=== PATIENT | female | born 1945 | race Caucasian/White ===

== ENCOUNTER 2018-12-28 13:27 | Outpatient (CLI) | payer SELFPAY | END 2018-12-28 13:28 | disposition EMS.NT | LOC: EMS 13:27 | PROVIDERS: ATTEND Surgery | DX: R07.9 Chest pain, unspecified (principal) ==

== ENCOUNTER 2020-03-07 14:18 | Outpatient (CLI) | payer MEDICARE, BC ==
--- NOTE | 2020-03-15 10:54 | Mammography Report ---
BILATERAL DIGITAL SCREENING MAMMOGRAM 3D/2D: 03/07/2020 CLINICAL: Baseline exam. Routine screening. No prior exams were available for comparison. There are scattered fibroglandular elements in both br easts. There are benign calcifications in the right breast. No significant masses, calcifications, or other findings are seen in either breast. IMPRESSION: There is no mammographic evidence of malignancy. A 1 year screening mammogram is recommended. This exam was interpreted at Station ID: [id number]. NOTE: For mammograms, a report in lay terms will be sent to the patient. Approximately 15% of breast malignancies will not be visualized mammographically. In the management of a palpable breast mass, a negative mammogram must not discourage biopsy of a clinically suspicious lesion. Electronically Signed By: Tapan Rangel M.D. [facility] [place]:03/15/2020 08:59:37 ACR BI-RADS Category 2: Benign Finding(s) 3342F PARENCHYMAL PATTERN: (A) - The breast(s) demonstrate(s) scattered fibroglandular densities. BI-RADS CATEGORY: (2) - 2 RECOMMENDATION: (ANNUAL) - Recommend routine annual screening mammography. [id number] 1 year screening LATERALITY: (B)
== END 2020-03-07 14:19 | disposition home or self-care (01) ==
LOC: DI 14:18
PROVIDERS: ATTEND Internal Medicine
DX: Z12.31 Encounter for screening mammogram for malignant neoplasm of breast (principal)
CPT/HCPCS: 77063; 77067

== ENCOUNTER 2021-06-18 10:57 | Outpatient (CLI) | payer MEDICARE, BC ==
--- NOTE | 2021-06-19 08:51 | Mammography Report ---
BILATERAL DIGITAL SCREENING MAMMOGRAM 3D/2D: 06/18/2021 CLINICAL: Routine screening. Comparison is made to exams dated: 03/07/2020 mammogram - [facility], 12/16/2017 [facility] mogram, and 10/08/2016 mammogram - [facility]. There are scattered fibroglandular eleme nts in both breasts. There are benign calcifications in the right breast. No significant masses, calcifications, or other findings are seen in either breast. There has been no significant interval change. IMPRESSION: BENIGN There is no mammographic evidence of malignancy. A 1 year screening mammogram is recommended. This exam was interpreted at Station ID: [id number]. NOTE: For mammograms, a report in lay terms will be sent to the patient. Approximately 15% of breast malignancies will not be visualized mammographically. In the management of a palpable breast mass, a negative mammogram must not discourage biopsy of a clinically suspicious lesion. Electronically Signed By: Landon Stokes M.D. ddp/smitharad:06/18/2021 12:08:56 ACR BI-RADS Category 2: Benign Finding(s) 3342F PARENCHYMAL PATTERN: (A) - The breast(s) demonstrate(s) scattered fibroglandular densities. BI-RADS CATEGORY: (2) - 2 RECOMMENDATION: (ANNUAL) - Recommend routine annual screening mammography. [id number] 1 year screening LATERALITY: (B)
== END 2021-06-18 10:58 | disposition home or self-care (01) ==
LOC: DI.S 10:57
DX: Z12.31 Encounter for screening mammogram for malignant neoplasm of breast (principal)

== ENCOUNTER 2021-12-22 09:31 | Outpatient (CLI) | payer MEDICARE, BC ==
[2021-12-22 15:19] LABS: BASOPHILS % (AUTO) 0.6 %; EOSINOPHILS # (AUTO) 0.1 10^3/uL (0.0-0.7); HCT - HEMATOCRIT 39.6 % (37.0-47.0); HGB - HEMOGLOBIN 12.9 g/dL (12.0-16.0); LYMPHOCYTES # (AUTO) 1.6 10^3/uL (1.5-3.5); LYMPHOCYTES % (AUTO) 45.6 %; MEAN CORPUSCULAR HEMOGLOBIN 29.8 pg (27.0-31.0); MEAN CORPUSCULAR HGB CONC 32.6 g/dL (32.0-36.0); MEAN CORPUSCULAR VOLUME 91.5 fL (81.0-99.0); MEAN PLATELET VOLUME 12.2 fL (7.9-10.8); MONOCYTES # (AUTO) 0.6 10^3/uL (0.0-1.0); MONOCYTES % (AUTO) 18.1 %; NEUTROPHILS # (AUTO) 1.2 10^3/uL (1.5-6.6); NEUTROPHILS % (AUTO) 33.1 %; PLT - PLATELET COUNT 106 10^3/uL (130-450); RED BLOOD COUNT 4.33 10^6/uL (4.20-5.40); RED CELL DISTRIBUTION WIDTH 13.9 % (12.0-15.0); WHITE BLOOD COUNT 3.5 x10^3/uL (4.8-10.8)
[2021-12-22 15:57] LABS: ALBUMIN/GLOBULIN RATIO 1.2 (1.0-2.2); ALKALINE PHOSPHATASE 63 IU/L (42-121); ALT ALANINE AMINOTRANSFERASE 17 IU/L (10-60); AST ASPARTATE AMINOTRANSFERASE 19 IU/L (10-42); BILIRUBIN,TOTAL 0.5 mg/dL (0.2-1.0); BUN - BLOOD UREA NITROGEN 14 mg/dL (6-20); CALCIUM 9.5 mg/dL (8.5-10.3); CARBON DIOXIDE - CO2 25 mmol/L (21-32); CHLORIDE 106 mmol/L (101-111); CHOL/HDL RATIO 4.5 (<4.4); CHOLESTEROL 226 mg/dL; CREATININE 0.6 mg/dL (0.4-1.0); GFR - MDRD 97 (>89); GLUCOSE 91 mg/dL (70-100); HDL CHOLESTEROL 50 mg/dL; LDL CHOLESTEROL,CALCULATED 141 mg/dL; LDL/HDL RATIO 2.8 (<4.4); POTASSIUM 4.1 mmol/L (3.5-5.0); SODIUM 138 mmol/L (135-145); TOTAL PROTEIN 7.3 g/dL (6.7-8.2); TRIGLYCERIDES 175 mg/dL; VLDL CHOLESTEROL 35 mg/dL
== END 2021-12-22 09:32 | disposition home or self-care (01) ==
LOC: LAB.S 09:31
PROVIDERS: ATTEND Family Medicine
DX: Z00.00 Encounter for general adult medical examination without abnormal findings (principal); D69.6 Thrombocytopenia, unspecified
CPT/HCPCS: 36415; 80053; 80061; 83721; 85025

== ENCOUNTER 2022-04-12 14:18 | Outpatient (CLI) | payer MEDICARE, BC ==
--- NOTE | 2022-04-12 17:02 | DEXA Report ---
PROCEDURE: Dexa Spine and/or Hip INDICATIONS: POST MENOPAUSAL TECHNIQUE: Dual energy x-ray absorptiometry (DXA) was performed on a Lopoly System. Regions measur ed are the AP Spine, femoral neck, and if needed forearm. COMPARISON: 03/07/2020 FINDINGS: Lumbar Spine: Bone Mineral Density 1.185 g/cm/cm,T score 0, normal bone density Left Hip: Bone Mineral Density 0.852 g/cm/cm,T score -1.2, osteopenia Left Femoral Neck: Bone Mineral Density 0.773 g/cm/cm, T score -1.9, osteopenia (T score greater or equal to -1.0: NORMAL) (T score from -1.1 to -2.4: OSTEOPENIA) (T score less than or equal to -2.5 to: OSTEOPOROSIS) Impression: Osteopenia. Patient is at increased risk for fracture. Of note, left hip bone mineral density decreas ed 6.8% compared to 2020 evaluation. Additionally, bone mineral density of the lumbar spine decreased 2.5% compared to 2020 evaluation. Patients with diagnosis of osteoporosis or osteopenia should have regular bone mineral density assess ment. For those eligible for Medicare, routine testing is allowed once every 2 years. Testing frequ ency can be increased for patients who have rapidly progressing disease or for those who are receivin g medical therapy to restore bone mass. Reviewed by: Naun Chi MD on 04/12/2022 5:00 PM PDT Approved by: Naun Chi MD on 04/12/2022 5:00 PM PDT Station ID: [id number]
== END 2022-04-12 14:19 | disposition home or self-care (01) ==
LOC: DI 14:18
PROVIDERS: ATTEND Family Medicine
DX: Z13.820 Encounter for screening for osteoporosis (principal); M85.89 Other specified disorders of bone density and structure, multiple sites

== ENCOUNTER 2024-03-31 14:54 | Outpatient (CLI) | payer MEDICARE, BC ==
--- NOTE | 2024-04-01 10:43 | Mammography Report ---
BILATERAL DIGITAL SCREENING MAMMOGRAM 3D/2D: 03/31/2024 CLINICAL: Routine screening. Comparison is made to exams dated: 06/18/2021 mammogram, 03/07/2020 mammogram - [facility], and 12/16/2017 mammogram - [facility]. There are scattered areas of fibroglandular density in both breasts (category b / 25%-50% glandular t issue). There are benign calcifications in the right breast. No significant masses, calcifications, or other findings are seen in either breast. There has been no significant interval change. IMPRESSION: BENIGN There is no mammographic evidence of malignancy. A 1 year screening mammogram is recommended. Based on the Tyrer Cuzick model (a risk assessment model) the patient's lifetime risk is 1.1% and her 10 year risk is 0.0%. According to the ACR, ACS, and NCCN guidelines, an annual breast MRI exam chino g with mammogram is recommended if the patient's lifetime risk is 20% or greater. This exam was interpreted at Station ID: [id number]. NOTE: For mammograms, a report in lay terms will be sent to the patient. Approximately 15% of breast malignancies will not be visualized mammographically. In the management of a palpable breast mass, a negative mammogram must not discourage biopsy of a clinically suspicious lesion. Electronically Signed By: Naun smyth/mimi:04/01/2024 07:28:05 letter sent: No_Letter ACR BI-RADS Category 2: Benign Finding(s) 3342F PARENCHYMAL PATTERN: (A) - The breast(s) demonstrate(s) scattered fibroglandular densities. BI-RADS CATEGORY: (2) - 2 RECOMMENDATION: (ANNUAL) - Recommend routine annual screening mammography. [id number] 1 year screening LATERALITY: (B)
== END 2024-03-31 14:55 | disposition home or self-care (01) ==
LOC: DI.S 14:54
DX: Z12.31 Encounter for screening mammogram for malignant neoplasm of breast (principal); R92.323 Mammographic fibroglandular density, bilateral breasts

== ENCOUNTER 2025-02-27 15:16 | Inpatient (IN) ==
--- NOTE | 2025-02-27 15:28 | ED Physician Documentation ---
PD HPI LOWER EXT INJURY Stated complaint Stated Complaint: RT HIP PX, GLF Chief complaint Chief Complaint: Ext Problem History obtained from History obtained from: Patient, Family and EMS History of Present Illness PD HPI LOW EXT INJURY LOCATION: Right and Hip Type of injury: Fall (She states she was walking in the kitchen and pivoted and her flip-flop twisted on her foot causing her to fall to the right. She struck her elbow and hip. Main pain at the right hip and unable to get up.) Where injury occurred: Home Timing - onset: How many hours ago (1) Timing - details: Abrupt onset and Still present Associated symptoms: No Weakness or Numbness Contributing factors: No Anticoagulated or Prosthetic joint Similar symptoms before: Has not had sx before and Other (She is very active and healthy with normal ambulation and does not need assisting devices. Lives with her .) Recently seen: Clinic (Being treated for toenail infection with terbinafine and states has mildly elevated liver enzymes that her primary care is following.) Meds/Allgy Home Medications Ambulatory Orders Medication Instructions Recorded Confirmed tolterodine 4 mg capsule,extended mg PO 10/08/2410/15 release 24 hr Allergies Allergies Allergy/AdvReac Type Severity Reaction Status Date / Time codeine AdvReac Mild Nausea Verified 02/27/25 15:21 morphine AdvReac Mild Nausea Verified 02/27/25 15:21 PFSH Active Problems All Active Problems (Updated 02/27/25 @ 17:45 by Dipesh Alexis MD) GERD (gastroesophageal reflux disease) (Acute) Fall from slip, trip, or stumble (Acute) Femoral neck fracture (Acute) Bleeding (Acute) Visit for suture removal (Acute) Medical History Medical History (Updated 02/27/25 @ 17:45 by Dipesh Alexis MD) Insomnia Social History Social History Smoking Status: Never smoker Do you feel safe in your home environment?: Yes Suffered physical, verbal, emotional, or financial abuse?: No Exam Exam Vital Signs: Vital Signs x48h Temp Pulse Resp BP Pulse Ox 02/27/25 15:21 37.2 C 71 18 150/82 H 95 Constitutional normal general appearance, distress noted (moderate) (Minimally uncomfortable holding still lying on the cart. Significant pain to moderate pain with any movement of the right hip. No pain in the elbow with movement) and average body habitus HENMT normocephalic and head/scalp atraumatic Neck/C-Spine cervical spine nontender, cervical full ROM noted and supple Chest inspection of chest normal and palpation of chest normal Respiratory breath sounds equal bilaterally and normal respiratory effort Cardiovascular normal heart rate noted and regular rhythm noted Gastrointestinal abdomen soft to palpation and nontender to palpation Back/Pelvis no thoracic spine tenderness and no lumbar spine tenderness Extremities The right elbow without any effusion. Full range of motion in extension. No pain with movie star. The right hip shows tenderness along the inguinal area. Pain with even slight impaction, distraction or rotation. The knee and ankle are nontender. Neurology planning specialist II-XII intact, no focal motor deficit noted, no sensory deficits noted and speech normal Psychiatry mental status grossly normal, oriented x3, thought process normal, cooperative and affect normal Skin skin color normal Results Vitals Vitals: Vital Signs - 24 hr 02/27/25 15:21 02/27/25 15:23 02/27/25 15:49 Temperature 37.2 C Temperature Source Oral Pulse Rate 71 Respiratory Rate 18 Blood Pressure 150/82 H O2 Saturation 95 Oxygen Delivery Method Nasal Cannula O2 Source Room air Oxygen Flow Rate 2 Pain Intensity 2 2 02/27/25 15:53 Temperature Temperature Source Pulse Rate Respiratory Rate Blood Pressure O2 Saturation Oxygen Delivery Method O2 Source Oxygen Flow Rate Pain Intensity 2 Oxygen O2 Source Room air Oxygen Flow Rate 2 Labs Labs: Laboratory Tests 02/27/25 15:51 WBC 4.7 L RBC 3.98 L Hgb 12.4 Hct 37.8 MCV 95.0 MCH 31.2 H MCHC 32.8 RDW 14.2 Plt Count 101 L MPV 11.1 H Neut # (Auto) 2.1 Lymph # (Auto) 1.3 L [place] # (Auto) 1.1 H Eos # (Auto) 0.1 Baso # (Auto) 0.0 Absolute Nucleated RBC 0.00 Nucleated RBC % 0.0 Sodium 137 Potassium 4.1 Chloride 105 Carbon Dioxide 24 Anion Gap 8.0 BUN 17 Creatinine 0.8 Estimated GFR (MDRD) 69 L Glucose 107 H Calcium 9.6 Magnesium 2.2 Total Bilirubin 0.8 AST 49 H ALT 68 H Alkaline Phosphatase 366 H Total Protein 6.9 Albumin 3.9 Globulin 3.0 Albumin/Globulin Ratio 1.3 Lipase 11 Rads (name of study) right hip : Relevant Findings:: Final report received and EMP independent interpretation of test (femoral neck fracture) Interpretation: PT NAME: DELFINO LOVETT MR#: [id number] REG ER/ED AGE: 79 CI DT/TM: 02/27/2505/16/1524 PCP: Niels Wylie MD : 1945 ATT: SEX: F ORD: Radha Dodd [facility] EXAM: XR/H2R ([id number]) PROCEDURE: XR Hip w/Pelvis 2-3V RT INDICATIONS: fall, suspected hip fracture TECHNIQUE: 3 views of the hip were acquired. COMPARISON: None. FINDINGS: Bones: Mid right femoral neck fracture with minimal angulation. Femoral head articulate appropriately acetabulum. Left proximal femur unremarkable. Degenerative changes noted in the lower lumbar spine Soft tissues: No suspicious soft tissue calcifications or masses. IMPRESSION: Mid cervical right femoral neck fracture Reviewed by: Heri Green MD on 02/27/2025 3:41 PM AKDT PD Medical Decision Making ED course Complexity details: reviewed results, considered differential (Mechanical fall with clinically concerning for hip fracture. X-ray confirms a femoral neck fracture. Patient is otherwise medically well without any ongoing cardiovascular or renal problems. I talked with the hospitalist who agrees the patient can be admitted here. I did discuss with ortho.), d/w patient and d/w sales and service consultant (Dr. Hebert, ortho beverage inspection machine tender, who agrees to see pt in consultation. Then talked with hospitalist regarding admission. ) Discharge Plan Discharge Patient Disposition: 64 [facility] DC/Xfer Condition: Stable Clinical Impression: Fall from slip, trip, or stumble Femoral neck fracture Qualifiers: Encounter type: initial encounter Fracture type: closed Laterality: right Qualified Code(s): S72.001A - Fracture of unspecified part of neck of right femur, initial encounter for closed fracture Interventions: ED Admission Assessment Last Done: 02/27/25 17:34
--- OUTSIDE RECORDS SUMMARY | 2025-02-27 15:32 | EXTERNAL MEDICAL SUMMARY RPT | Continuity of Care Document ---
Author Organization [facility] Address [address] [address] Phone Problems date description facility 2024-12-20 10:09 [facility] 2024-12-21 00:05 [facility] 2025-01-13 16:31 [facility] 2025-01-14 00:06 [facility] Results/Labs test date facility value unit notes Result panel 1 BILIRUBIN,DIRECT 2024-12-20 10:17 [facility] 0.15 m g/dl As of March 2023 testing method has changed, this may include reference ranges. BILIRUBIN,TOTAL 2024-12-20 10:17 [facility] 0.7 mg /dl As of March 2023 testing method has changed, this may include reference ranges. CREATININE 2024-12-20 10:17 [facility] 0.8 mg/dl As of March 2023 testing method has changed, this may include reference ranges. BUN - BLOOD UREA NITROGEN 2024-12-20 10:17 [facility] 14 mg/dl As of Mar testing method has changed, this may include reference ranges. ALKALINE PHOSPHATASE 2024-12-20 10:17 [facility] 279 iu/l As of March 2023 testing method has changed, this may include reference ranges. GLOBULIN 2024-12-20 10:17 [facility] 3.0 g/dl (missing) ALBUMIN 2024-12-20 10:17 [facility] 4.2 g/dl As of March 2023 testing method has changed, this may include reference ranges. AST ASPARTATE AMINOTRANSFERASE 2024-12-20 10:17 [facility] 60 iu/l As of March 2023 testing method has changed, this may include reference ranges. GFR - MDRD 2024-12-20 10:17 [facility] 69 (missin g) Social History date description facility
[2025-02-27] MEDS: fentaNYL 100 MCG/2 ML VIAL IVP STA (15:49)
[2025-02-27] MEDS: ONDANSETRON 4 MG/2 ML VIAL IVP STA (15:51)
[2025-02-27] MEDS: KETOROLAC 15 MG/ML VIAL IVP STA (15:53)
[2025-02-27 15:57] LABS: BASOPHILS % (AUTO) 0.6 %; EOSINOPHILS # (AUTO) 0.1 10^3/uL (0.0-0.7); EOSINOPHILS % (AUTO) 1.1 %; HCT - HEMATOCRIT 37.8 % (37.0-47.0); HGB - HEMOGLOBIN 12.4 g/dL (12.0-16.0); LYMPHOCYTES # (AUTO) 1.3 10^3/uL (1.5-3.5); MEAN CORPUSCULAR HEMOGLOBIN 31.2 pg (27.0-31.0); MEAN CORPUSCULAR HGB CONC 32.8 g/dL (32.0-36.0); MEAN PLATELET VOLUME 11.1 fL (7.9-10.8); MONOCYTES # (AUTO) 1.1 10^3/uL (0.0-1.0); MONOCYTES % (AUTO) 24.4 %; NEUTROPHILS # (AUTO) 2.1 10^3/uL (1.5-6.6); NEUTROPHILS % (AUTO) 45.4 %; PLT - PLATELET COUNT 101 10^3/uL (130-450); RED BLOOD COUNT 3.98 10^6/uL (4.20-5.40); RED CELL DISTRIBUTION WIDTH 14.2 % (12.0-15.0); WHITE BLOOD COUNT 4.7 x10^3/uL (4.8-10.8)
[2025-02-27 16:03] LABS: MAGNESIUM 2.2 mg/dL (1.7-2.3)
[2025-02-27 16:09] LABS: ALBUMIN 3.9 g/dL (3.2-5.5); ALBUMIN/GLOBULIN RATIO 1.3 (1.0-2.2); BILIRUBIN,TOTAL 0.8 mg/dL (0.2-1.0); CALCIUM 9.6 mg/dL (8.5-10.3); CREATININE 0.8 mg/dL (0.6-1.3); POTASSIUM 4.1 mmol/L (3.5-4.5); TOTAL PROTEIN 6.9 g/dL (6.4-8.9)
--- NOTE | 2025-02-27 16:42 | XRAY Report ---
PROCEDURE: XR Hip w/Pelvis 2-3V RT INDICATIONS: fall, suspected hip fracture TECHNIQUE: 3 views of the hip were acquired. COMPARISON: None. FINDINGS: Bones: Mid right femoral neck fracture with minimal angulation. Femoral head articulate appropriately acetabulum. Left proximal femur unremarkable. Degenerative changes noted in the lower lumbar spine Soft tissues: No suspicious soft tissue calcifications or masses. IMPRESSION: Mid cervical right femoral neck fracture Reviewed by: Heri Green MD on 02/27/2025 3:41 PM AKDT Approved by: Heri Green MD on 02/27/2025 3:41 PM AKDT Station ID: [id number]
--- NOTE | 2025-02-27 16:46 | XRAY Report ---
PROCEDURE: XR Chest 1V INDICATIONS: fall, hip fracture TECHNIQUE: One view of the chest was acquired. COMPARISON: None. FINDINGS: Surgical changes and devices: None. Lungs and pleura: No pleural effusions or pneumothorax. No consolidation. Mediastinum: Mediastinal contours appear normal. Heart size is normal. Bones and chest wall: No suspicious bony lesions. Overlying soft tissues appear unremarkable. IMPRESSION: No acute cardiopulmonary process. Reviewed by: Heri Green MD on 02/27/2025 3:45 PM AKDT Approved by: Heri Green MD on 02/27/2025 3:45 PM AKDT Station ID: [id number]
--- NOTE | 2025-02-27 17:03 | HISTORY & PHYSICAL EXAMINATION ---
Chief Complaint Chief Complaint Chief Complaint: Mechanical fall History of Present Illness Admitted From Admitted From:: Home History Obtained From Records Reviewed: EMR History obtained from: Patient Exam Limitations: None History of Present Illness HPI Comment/Other: Patient is a 79 year old female with a history of GERD who presented after a ground level mechanical fall. Patient was making iced-coffee this morning in her flip-flops. She turned, and then fell. She had no lightheadedness, no dizziness, no prodrome prior to the fall. She does not have a history of falls. She usually ambulates without any assistive devices. She had no lightheadedness after. She fell squarely on her right hip, and had resultant pain afterwards. She has has had bone scans in the past, and has never been told she has osteoporosis or osteopenia. She does not take any calcium or vitamin D supplements. In the ED, she was vitally stable, blood pressure was 150/82, heart rate was 71, she was saturating 95% on room air. She was also afebrile. Lab work was largely unremarkable, except for a slightly elevated AST and ALT, as well as an elevated ALP. This is known from before, as she is on terbinafine for toe onychomycosis. Imaging was done, and a hip/pelvis x-ray showed a midcervical right femoral neck fracture. Chest x-ray showed no acute cardiopulmonary process. Orthopedic surgery was spoken with, and they plan on operating tomorrow. Of note, she has had a few surgeries before including the best reduction and a hysterectomy. She after anesthesia, she always has episodes of upset stomach, nausea, vomiting. Meds/Allgy Home Medications Ambulatory Orders Medication Instructions Recorded Confirmed tolterodine 4 mg capsule,extended mg PO 10/08/2410/15 release 24 hr Allergies Allergies Allergy/AdvReac Type Severity Reaction Status Date / Time codeine AdvReac Mild Nausea Verified 02/27/25 15:21 morphine AdvReac Mild Nausea Verified 02/27/25 15:21 PFSH Active Problems All Active Problems (Updated 02/27/25 @ 17:45 by Dipesh Alexis MD) GERD (gastroesophageal reflux disease) (Acute) Fall from slip, trip, or stumble (Acute) Femoral neck fracture (Acute) Bleeding (Acute) Visit for suture removal (Acute) Medical History Medical History (Updated 02/27/25 @ 17:45 by Dipesh Alexis MD) Insomnia Social History Social History Smoking Status: Never smoker Do you feel safe in your home environment?: Yes Suffered physical, verbal, emotional, or financial abuse?: No POLST Patient has POLST: No POLST Status: DNR Review of Systems Constitutional Denies: Fatigue, Fever, Chills, Malaise, Weakness or Poor appetite Eyes Denies: Pain, Irritation, Blurry vision, Vision loss, Diplopia or Eye discomfort Ears, nose, mouth, and throat Denies: Ear pain, Hearing loss, Tinnitus, Nose bleeds, Nasal discharge, Mouth lesions, Bleeding gums or Neck pain Cardiovascular Denies: Irregular heart rate, chest pain, palpitations, edema, Syncope or shortness of breath with exertion Respiratory Denies: Shortness of breath, Cough, Sputum production or Wheezing Gastrointestinal Denies: Abdominal pain, Abdominal distention, Nausea, Vomiting, Heartburn, Diarrhea or Constipation Genitourinary Denies: Painful urination, Urinary frequency or Urinary urgency Musculoskeletal Reports: Extremity pain, Joint pain, Limited range of motion and Joint swelling; Denies: Back pain, Neck pain or Extremity swelling Integumentary/Breast Denies: Rash, Itching, Dryness, Redness or Skin pain Neurological Denies: Headache, General weakness, Weakness in extremities, Numbness in extremities, Abnormal gait or Dizziness Psychiatric Denies: Depression, Anxiety, Mood swings or Panic attacks Endocrine Denies: Excessive urination, Excessive thirst or Fatigue Hematologic/Lymphatic Denies: Anemia, Easy bruising or Easy bleeding Allergic/Immunologic Denies: Hives, Tongue swelling, Facial swelling or Wheezing Exam Exam Vital Signs: Vital Signs x48h Temp Pulse Resp BP Pulse Ox 02/27/25 15:21 99.0 F 71 18 150/82 H 95 Constitutional normal general appearance, no apparent distress, average body habitus and no limitations HENMT normocephalic, head/scalp atraumatic and hearing grossly normal bilaterally Eyes PERRL, EOMs intact bilaterally and conjunctivae normal Neck/C-Spine visual inspection normal, trachea midline and cervical spine nontender Chest inspection of chest normal Respiratory breath sounds equal bilaterally, normal respiratory effort, clear to auscultation bilaterally, no wheezes, no rales and no retractions Cardiovascular normal heart rate noted, regular rhythm noted, no gallop, no rub and no murmur Gastrointestinal abdomen normal to inspection, abdomen soft to palpation, nontender to palpation and normoactive bowel sounds Genitourinary no CVA tenderness and bladder normal to palpation Back/Pelvis spine normal to inspection Extremities Right leg slightly rotated, tender to passive and active range of motion, tenderness around joint line. Good capillary refill, DP and PT 2+ pulses, sensation intact. Able to wiggle both toes. Neurology no movement abnormality noted and no focal motor deficit noted Psychiatry mental status grossly normal, oriented x3, thought process normal, cooperative and affect normal Skin skin color normal, no rash, no lesions and no wounds Conclusion/Plan Problem List (1) Femoral neck fracture: Plan: Patient presents after ground-level fall. Hip x-ray reveals midcervical right femoral neck fracture. Orthopedic surgery consulted, planning on OR tomorrow. N.p.o. at midnight. Pain control with Tylenol, Irene, morphine as needed. Qualifiers: Encounter type: initial encounter Fracture type: closed Laterality: r ight Qualified Code(s): S72.001A - Fracture of unspecified part of neck of right femur, initial encounter for closed fracture (2) GERD (gastroesophageal reflux disease): Plan: Continue omeprazole. Qualifiers: Esophagitis presence: esophagitis presence not specified Qualified Code(s): K21.9 - Gastro-esophageal reflux disease without esophagitis (3) Insomnia: Plan: Continue trazodone. Qualifiers: Insomnia type: unspecified Qualified Code(s): G47.00 - Insomnia, unspecified Lab Results Lab results reviewed: Yes 02/27/25 15:51 02/27/25 15:51 Core Measures Anticipated LOS I expect patient to be DC'd or transferred within 96 hours.: Yes Issues Hospital Issues and Management Plan: None anticipated. DVT/VTE - Prophylaxis VTE/DVT Device ordered at admit?: No VTE/DVT Prophylaxis med ordered at admit?: Yes
--- OUTSIDE RECORDS SUMMARY | 2025-02-27 17:14 | EXTERNAL MEDICAL SUMMARY RPT | Continuity of Care Document ---
Author Organization [place] Address [address] [address] Phone Problems date description facility 2024-12-20 10:09 [facility] 2024-12-21 00:05 [facility] 2025-01-13 16:31 [facility] 2025-01-14 00:06 [facility] Results/Labs test date facility value unit notes Result panel 1 BILIRUBIN,DIRECT 2024-12-20 10:17 [facility] 0.15 m g/dl As of March 2023 testing method has changed, this may include reference ranges. BILIRUBIN,TOTAL 2024-12-20 10:17 [facility] 0.7 mg /dl As of March 2023 testing method has changed, this may include reference ranges. CREATININE 2024-12-20 10:17 [facility] 0.8 mg/dl As of March 2023 testing method has changed, this may include reference ranges. BUN - BLOOD UREA NITROGEN 2024-12-20 10:17 [facility] 14 mg/dl As of Mar testing method has changed, this may include reference ranges. ALKALINE PHOSPHATASE 2024-12-20 10:17 [facility] 279 iu/l As of March 2023 testing method has changed, this may include reference ranges. GLOBULIN 2024-12-20 10:17 [facility] 3.0 g/dl (missing) ALBUMIN 2024-12-20 10:17 [facility] 4.2 g/dl As of March 2023 testing method has changed, this may include reference ranges. AST ASPARTATE AMINOTRANSFERASE 2024-12-20 10:[address] 60 iu/l As of March 2023 testing method has changed, this may include reference ranges. GFR - MDRD 2024-12-20 10:17 [facility] 69 (missin g) Social History date description facility
[2025-02-27] MEDS ORDERED: MORPHINE 2 MG/ML CARPUJECT IVP PRN (17:39)
[2025-02-27] MEDS ORDERED: ACETAMINOPHEN 325 MG TABLET PO PRN (17:39)
[2025-02-27 18:01] LABS: BILIRUBIN,URINE NEGATIVE (NEGATIVE); GLUCOSE, URINE (UA) NEGATIVE (NEGATIVE); KETONES,URINE (UA) TRACE mg/dL (NEGATIVE); LEUKOCYTE ESTERASE, URINE NEGATIVE (NEGATIVE); NITRITE,URINE NEGATIVE (NEGATIVE); OCCULT BLOOD,URINE NEGATIVE (NEGATIVE); PROTEIN,URINE NEGATIVE (NEGATIVE); UROBILINOGEN,URINE 1 (NORMAL) E.U./dL (NORMAL)
[2025-02-27] MEDS: HYDROcod/ACETAM 5/325 MG TABLET PO PRN (18:02)
[2025-02-27 18:08] LABS: CLARITY,URINE HAZY (CLEAR)
[2025-02-27 18:09] LABS: AMORPHOUS SEDIMENT,UR Few /LPF; BACTERIA,URINE None Seen /HPF (None Seen); CRYSTALS,URINE 0-2 Calcium Oxalate /LPF; MUCUS,URINE Few Strands; RBC,URINE None Seen /HPF (0-5); SQUAMOUS EPITHELIAL CELL,UR RARE Squamous (<= Few); WBC,URINE 0-3 /HPF (0-5)
[2025-02-27] MEDS: SODIUM CHLORIDE FLUSH 0.9% 10 ML SYRINGE IVP SCH (18:23)
[2025-02-27] MEDS: LORazepam 2 MG/ML VIAL IVP PRN (19:38)
[2025-02-27] MEDS: SODIUM CHLORIDE FLUSH 0.9% 10 ML SYRINGE IVP PRN (19:39)
[2025-02-27] MEDS: traZODone 50 MG TABLET PO SCH (22:50)
[2025-02-28] MEDS: HYDROmorphone 0.5 MG/0.5 ML SYRINGE IVP PRN (01:36)
[2025-02-28 05:05] LABS: HCT - HEMATOCRIT 36.9 % (37.0-47.0); MEAN CORPUSCULAR HEMOGLOBIN 30.8 pg (27.0-31.0); MEAN CORPUSCULAR HGB CONC 32.5 g/dL (32.0-36.0); MEAN CORPUSCULAR VOLUME 94.6 fL (81.0-99.0); RED BLOOD COUNT 3.9 10^6/uL (4.20-5.40); RED CELL DISTRIBUTION WIDTH 13.9 % (12.0-15.0); WHITE BLOOD COUNT 6.9 x10^3/uL (4.8-10.8)
[2025-02-28 05:21] LABS: ALBUMIN 3.6 g/dL (3.2-5.5); ALBUMIN/GLOBULIN RATIO 1.2 (1.0-2.2); BILIRUBIN,TOTAL 0.7 mg/dL (0.2-1.0); CALCIUM 9.8 mg/dL (8.5-10.3); CREATININE 0.7 mg/dL (0.6-1.3); POTASSIUM 4.3 mmol/L (3.5-4.5); TOTAL PROTEIN 6.6 g/dL (6.4-8.9)
[2025-02-28] MEDS: polyethylene glycoL 3350 17 GM PACKET PO SCH (08:37)
--- NOTE | 2025-02-28 08:57 | ANESTHESIA PROCEDURE NOTE ---
Pre-Anesthesia VS, & Labs Diagnosis Surgical Diagnosis:: fx R hip Procedure Procedure: R eugenia hip arthroplasty Vitals Vital Signs: Temp Pulse Resp BP Pulse Ox 37.3 C 77 16 114/65 94 02/28/25 08:14 02/28/25 08:14 02/28/25 08:14 02/28/25 08:14 02/28/25 08:14 NPO NPO: >8 hours Is Patient ?: No Lab Results Current Lab Results: Laboratory Tests 02/28/25 04:14: WBC 6.9, RBC 3.90 L, Hgb 12.0, Hct 36.9 L, MCV 94.6, MCH 30.8, MCHC 32.5, RDW 13.9, Plt Count 94 L, MPV 12.0 H, Sodium 136, Potassium 4.3, Chloride 103, Carbon Dioxide 29, Anion Gap 4.0 L, BUN 16, Creatinine 0.7, E stimated GFR (MDRD) 80 L, Glucose 112 H, Calcium 9.8, Total Bilirubin 0.7, AST 35, ALT 58, Alkaline Phosphatase 331 H, Total Protein 6.6, Albumin 3.6, Globulin 3.0, Albumin/Globulin Ratio 1.2 02/27/25 15:51: WBC 4.7 L, RBC 3.98 L, Hgb 12.4, Hct 37.8, MCV 95.0, MCH 31.2 H, MCHC 32.8, RDW 14.2, Plt Count 101 L, MPV 11.1 H, Neut # (Auto) 2.1, Lymph # (Auto) 1.3 L, [place] # (Auto) 1.1 H, Eos # (Auto) 0.1, Baso # (Auto) 0.0, Absolute Nucleated RBC 0.00, Nucleated RBC % 0.0, Sodium 137, Potassium 4.1, Chloride 105, Carbon Dioxide 24, Anion Gap 8.0, BUN 17, Creatinine 0.8, Estimated GFR (MDRD) 69 L, Glucose 107 H, Calcium 9.6, Magnesium 2.2, Total Bilirubin 0.8, AST 49 H, ALT 68 H, Alkaline Phosphatase 366 H, Total Protein 6.9, Albumin 3.9, Globulin 3.0, Albumin/Globulin Ratio 1.3, Lipase 11 Lab results reviewed: Yes 02/28/25 04:14 02/28/25 04:14 Meds/Allgy Home Medications Ambulatory Orders Medication Instructions Recorded Confirmed tolterodine 4 mg capsule,extended mg PO 10/08/2410/15 release 24 hr Allergies Allergies Allergy/AdvReac Type Severity Reaction Status Date / Time codeine AdvReac Mild Nausea Verified 02/27/25 15:21 morphine AdvReac Mild Nausea Verified 02/27/25 15:21 PFSH Active Problems All Active Problems (Updated 02/27/25 @ 17:45 by Dipesh Alexis MD) GERD (gastroesophageal reflux disease) (Acute) Fall from slip, trip, or stumble (Acute) Femoral neck fracture (Acute) Bleeding (Acute) Visit for suture removal (Acute) Medical History Medical History (Updated 02/27/25 @ 17:45 by Dipesh Alexis MD) Insomnia Social History Social History Smoking Status: Never smoker Second hand tobacco smoke exposure: No Do you dip or chew tobacco?: No Do you vape?: No Relationship: Level: Independent Do you feel safe in your home environment?: Yes Suffered physical, verbal, emotional, or financial abuse?: No Substance Use: denies use POLST Patient has POLST: No POLST Status: DNR Anesthesia Exam (Expanded) Exam General: Alert, Oriented x3 and Cooperative Dental: WNL Mouth Openin Fingerbreadth Neck Mobility: Normal Thyromental Distance: 4-6 cm Respiratory: Lungs clear, Normal breath sounds and No respiratory distress Cardiovascular: Regular rate Neurological: Normal speech Mental/Cognitive Status: Alert/Oriented X3 and Normal for patient Cognitive Status: Within normal limits Exam Exam Vital Signs: Vital Signs x48h Temp Pulse Resp BP Pulse Ox 02/28/25 08:14 37.3 C 77 16 114/65 94 Plan Problem List (1) Femoral neck fracture: Plan: Patient presents after ground-level fall. Hip x-ray reveals midcervical right femoral neck fracture. Orthopedic surgery consulted, planning on OR tomorrow. N.p.o. at midnight. Pain control with Tylenol, [place], morphine as needed. Qualifiers: Encounter type: initial encounter Fracture type: closed Laterality: r ight Qualified Code(s): S72.001A - Fracture of unspecified part of neck of right femur, initial encounter for closed fracture (2) GERD (gastroesophageal reflux disease): Plan: Continue omeprazole. Qualifiers: Esophagitis presence: esophagitis presence not specified Qualified Code(s): K21.9 - Gastro-esophageal reflux disease without esophagitis (3) Insomnia: Plan: Continue trazodone. Qualifiers: Insomnia type: unspecified Qualified Code(s): G47.00 - Insomnia, unspecified Plan Anesthesia Type: General, Spinal and Fascia Iliaca Block (possible, vs surgeon injection) Consent for Procedure(s) Verified and Reviewed: Yes Code Status: Attempt Resuscitation ASA Classification ASA classification: 2-Mild systemic disease Is this case an emergency?: Yes
--- NOTE | 2025-02-28 10:06 | PROVIDER PROGRESS NOTE ---
Subjective Prog Note Date Prog Note Date: 02/28/25 Subjective Pt reports feeling: Improved Current Medications Current Medications Current Medications: Current Medications Generic Name Dose Route Start Last Admin Trade Name Freq PRN Reason Stop Dose Admin Acetaminophen 650 mg 02/27/25 17:39 Acetaminophen 325 Mg Tablet PO Q4HR PRN Pain 1 to 4, or Fever Hydrocodone Bitart/Acetaminophen 1 tab 02/27/25 17:39 02/28/25 00:51 Hydrocod/Acetam 5/325 Mg Tablet PO 1 tab Q4HR PRN Administration Pain 5 to 7 Enoxaparin Sodium 40 mg 03/01/25 09:00 Enoxaparin 40 Mg/0.4 Ml Syringe SUBQ 03/01/25 09:01 ONCE MIQUEL Hydromorphone HCl 0.5 mg 02/27/25 18:52 02/28/25 08:36 Hydromorphone 0.5 Mg/0.5 Ml Syringe IVP 0.5 mg Q4HR PRN Administration Severe Pain (Level 7-10) Lorazepam 0.5 mg 02/27/25 19:20 02/27/25 19:38 Lorazepam 2 Mg/Ml Vial IVP 0.5 mg Q4H PRN Administration tremors Polyethylene Glycol 17 gm 02/28/25 09:00 02/28/25 08:37 Polyethylene Glycol 3350 17 Gm Packet PO Not Given DAILY MIQUEL Sodium Chloride 10 ml 02/27/25 17:39 02/27/25 19:39 Sodium Chloride Flush 0.9% 10 Ml Syringe IVP 10 ml PRN PRN Administration NEEDED PER PROVIDER ORDERS Sodium Chloride 10 ml 02/27/25 17:39 02/28/25 08:36 Sodium Chloride Flush 0.9% 10 Ml Syringe IVP 10 ml 0100,0900,1700 MIQUEL Administration Trazodone HCl 200 mg 02/27/25 21:00 02/27/25 22:50 Trazodone 50 Mg Tablet PO 200 mg QPM MIQUEL Administration Objective Vital Signs/Intake & Output Reviewed Vital Signs: Yes Vital Signs: Vital Signs x48h Temp Pulse Resp BP Pulse Ox 02/28/25 08:14 37.3 C 77 16 114/65 94 Intake & Output: Intake & Output 02/25/25 02/26/25 02/27/25 02/28/25 23:59 23:59 23:59 23:59 Intake Total 440 / 440 Output Total 375 / 375 220 / 220 Balance 65 / 65 -220 / -220 Weight (kg) 81.5 kg Objective General Appearance: positive No acute distress and Alert Eyes Bilateral: positive Normal inspection ENT: positive ENT inspection nml Neck: positive Nml inspection Respiratory: positive Chest non-tender and No respiratory distress Cardiovascular: positive Regular rate & rhythm Abdomen: positive Non-tender Skin: positive Color nml Extremities: positive No pedal edema and Other (Right leg rotated, tender with movement) Neurologic/Psychiatric: positive Oriented x3 Lab Results 02/28/25 04:14 02/28/25 04:14 Other Labs: Lab Results x24hrs 02/28/25 02/27/25 02/27/25 Range/Units 04:14 17:34 15:51 WBC 6.9 4.7 L (4.8-10.8) x10^3/uL RBC 3.90 L 3.98 L (4.20-5.40) 10^6/uL Hgb 12.0 12.4 (12.0-16.0) g/dL Hct 36.9 L 37.8 (37.0-47.0) % MCV 94.6 95.0 (81.0-99.0) fL MCH 30.8 31.2 H (27.0-31.0) pg MCHC 32.5 32.8 (32.0-36.0) g/dL RDW 13.9 14.2 (12.0-15.0) % Plt Count 94 L 101 L (130-450) 10^3/uL MPV 12.0 H 11.1 H (7.9-10.8) fL Neut # (Auto) 2.1 (1.5-6.6) 10^3/uL Lymph # (Auto) 1.3 L (1.5-3.5) 10^3/uL [place] # (Auto) 1.1 H (0.0-1.0) 10^3/uL Eos # (Auto) 0.1 (0.0-0.7) 10^3/uL Baso # (Auto) 0.0 (0.0-0.1) 10^3/uL Absolute Nucleated RBC 0.00 x10^3/uL Nucleated RBC % 0.0 /100WBC Sodium 136 137 (135-145) mmol/L Potassium 4.3 4.1 (3.5-4.5) mmol/L Chloride 103 105 (101-111) mmol/L Carbon Dioxide 29 24 (21-32) mmol/L Anion Gap 4.0 L 8.0 (6-13) BUN 16 17 (6-20) mg/dL Creatinine 0.7 0.8 (0.6-1.3) mg/dL Estimated GFR (MDRD) 80 L 69 L (>89) Glucose 112 H 107 H (74-104) mg/dL Calcium 9.8 9.6 (8.5-10.3) mg/dL Magnesium 2.2 (1.7-2.3) mg/dL Total Bilirubin 0.7 0.8 (0.2-1.0) mg/dL AST 35 49 H (10-42) IU/L ALT 58 68 H (10-60) IU/L Alkaline Phosphatase 331 H 366 H (42-121) IU/L Total Protein 6.6 6.9 (6.4-8.9) g/dL Albumin 3.6 3.9 (3.2-5.5) g/dL Globulin 3.0 3.0 (2.1-4.2) g/dL Albumin/Globulin Ratio 1.2 1.3 (1.0-2.2) Lipase 11 (11-82) U/L Urine Color YELLOW Urine Clarity HAZY (CLEAR) Urine pH 7.0 (5.0-7.5) PH Ur Specific [place] 1.020 (1.002-1.030) Urine Protein NEGATIVE (NEGATIVE) mg/dL Urine Glucose (UA) NEGATIVE (NEGATIVE) mg/dL Urine Ketones TRACE (NEGATIVE) mg/dL Urine Occult Blood NEGATIVE (NEGATIVE) Urine Nitrite NEGATIVE (NEGATIVE) Urine Bilirubin NEGATIVE (NEGATIVE) Urine Urobilinogen 1 (NORMAL) (NORMAL) E.U./dL Ur Leukocyte Esterase NEGATIVE (NEGATIVE) Urine RBC None Seen (0-5) /HPF Urine WBC 0-3 (0-5) /HPF Ur Squamous Epith Cells RARE Squamous (<= Few) Urine Crystals 0-2 Calcium Oxalate /LPF Amorphous Sediment Few /LPF Urine Bacteria None Seen (None Seen) /HPF Urine Mucus Few Strands Urine Culture Comments NOT INDICATED Assessment/Plan Problem List (1) Femoral neck fracture: Impression: Midcervical right femoral neck fracture confirmed on x-ray from mechanical ground-level fall Orthopedics following N.p.o., plan for OR later today Continuing pain management with as needed Portal, morphine. Changing Tylenol to scheduled 1 g 3 times daily Reports pain under better control after Dilaudid this morning Qualifiers: Encounter type: initial encounter Fracture type: closed Laterality: r ight Qualified Code(s): S72.001A - Fracture of unspecified part of neck of right femur, initial encounter for closed fracture (2) GERD (gastroesophageal reflux disease): Impression: I have restarted her home dose of omeprazole Qualifiers: Esophagitis presence: esophagitis presence not specified Qualified Code(s): K21.9 - Gastro-esophageal reflux disease without esophagitis (3) Insomnia: Impression: Continue trazodone Qualifiers: Insomnia type: unspecified Qualified Code(s): G47.00 - Insomnia, unspecified
[2025-02-28] MEDS ORDERED: fentaNYL 100 MCG/2 ML VIAL ONE (11:32)
[2025-02-28] MEDS ORDERED: MIDAZOLAM 2 MG/2 ML VIAL ONE (11:32)
[2025-02-28] MEDS ORDERED: LIDOCAINE-PF 2% 10 ML AMP SUBQ ONE (11:33)
--- NOTE | 2025-02-28 11:43 | HISTORY & PHYSICAL EXAMINATION ---
History of Present Illness Admitted From Admitted From:: Emergency room History of Present Illness HPI Comment/Other: The patient was at home tripped and fell and states that she just went down. She was brought to the emergency room and evaluation determined that she had a displaced femoral neck fracture. She was admitted to the medicine service and I have been consulted regarding management of the fracture. The patient she states she has no numbness or tingling but she is unable to lift her leg or use it. Colonoscopy Questionnaire In the last 30 days have you experienced these symptoms? PFSH Active Problems All Active Problems (Updated 02/27/25 @ 17:45 by Dipesh Alexis MD) GERD (gastroesophageal reflux disease) (Acute) Fall from slip, trip, or stumble (Acute) Femoral neck fracture (Acute) Bleeding (Acute) Visit for suture removal (Acute) Medical History Medical History (Updated 02/27/25 @ 17:45 by Dipesh Alexis MD) Insomnia Social History Social History Smoking Status: Never smoker Second hand tobacco smoke exposure: No Do you dip or chew tobacco?: No Do you vape?: No Relationship: Level: Independent Do you feel safe in your home environment?: Yes Suffered physical, verbal, emotional, or financial abuse?: No Substance Use: denies use POLST Patient has POLST: No POLST Status: DNR Meds/Allgy Home Medications Ambulatory Orders Medication Instructions Recorded Confirmed tolterodine 4 mg capsule,extended 4 mg PO DAILY 02/28/25 release 24 hr ascorbic acid (vitamin C) 500 mg 500 mg PO DAILY 02/2802/28/25 tablet cholecalciferol (vitamin D3) 25 25 mcg PO DAILY 02/28/25 mcg (1,000 unit) tablet multivitamin (Daily Multi-Vitamin 1 tab PO DAILY 02/2802/28/25 tablet) omeprazole 20 mg capsule,delayed 20 mg PO DAILY 02/28/25 release polyethylene glycol 3350 17 17 g PO DAILY PRN congesti on 02/28/25 02/28/25 gram/dose oral powder (LaxaClear) terbinafine HCl 250 mg tablet 250 mg PO DAILY 02/28/25 02/28/25 trazodone 50 mg tablet 200 mg PO HS 02/28/25 triamcinolone acetonide 0.1 % 1 applic topical BID PRN itching 02/28/25 02/28/25 topical ointment Allergies Allergies Allergy/AdvReac Type Severity Reaction Status Date / Time codeine AdvReac Mild Nausea Verified 02/27/25 15:21 morphine AdvReac Mild Nausea Verified 02/27/25 15:21 Results Lab Results 02/28/25 04:14 02/28/25 04:14 Other Lab Results: Lab Results x24hrs 02/28/25 02/27/25 02/27/25 Range/Units 04:14 17:34 15:51 WBC 6.9 4.7 L (4.8-10.8) x10^3/uL RBC 3.90 L 3.98 L (4.20-5.40) 10^6/uL Hgb 12.0 12.4 (12.0-16.0) g/dL Hct 36.9 L 37.8 (37.0-47.0) % MCV 94.6 95.0 (81.0-99.0) fL MCH 30.8 31.2 H (27.0-31.0) pg MCHC 32.5 32.8 (32.0-36.0) g/dL RDW 13.9 14.2 (12.0-15.0) % Plt Count 94 L 101 L (130-450) 10^3/uL MPV 12.0 H 11.1 H (7.9-10.8) fL Neut # (Auto) 2.1 (1.5-6.6) 10^3/uL Lymph # (Auto) 1.3 L (1.5-3.5) 10^3/uL [place] # (Auto) 1.1 H (0.0-1.0) 10^3/uL Eos # (Auto) 0.1 (0.0-0.7) 10^3/uL Baso # (Auto) 0.0 (0.0-0.1) 10^3/uL Absolute Nucleated RBC 0.00 x10^3/uL Nucleated RBC % 0.0 /100WBC Sodium 136 137 (135-145) mmol/L Potassium 4.3 4.1 (3.5-4.5) mmol/L Chloride 103 105 (101-111) mmol/L Carbon Dioxide 29 24 (21-32) mmol/L Anion Gap 4.0 L 8.0 (6-13) BUN 16 17 (6-20) mg/dL Creatinine 0.7 0.8 (0.6-1.3) mg/dL Estimated GFR (MDRD) 80 L 69 L (>89) Glucose 112 H 107 H (74-104) mg/dL Calcium 9.8 9.6 (8.5-10.3) mg/dL Magnesium 2.2 (1.7-2.3) mg/dL Total Bilirubin 0.7 0.8 (0.2-1.0) mg/dL AST 35 49 H (10-42) IU/L ALT 58 68 H (10-60) IU/L Alkaline Phosphatase 331 H 366 H (42-121) IU/L Total Protein 6.6 6.9 (6.4-8.9) g/dL Albumin 3.6 3.9 (3.2-5.5) g/dL Globulin 3.0 3.0 (2.1-4.2) g/dL Albumin/Globulin Ratio 1.2 1.3 (1.0-2.2) Lipase 11 (11-82) U/L Urine Color YELLOW Urine Clarity HAZY (CLEAR) Urine pH 7.0 (5.0-7.5) PH Ur Specific [place] 1.020 (1.002-1.030) Urine Protein NEGATIVE (NEGATIVE) mg/dL Urine Glucose (UA) NEGATIVE (NEGATIVE) mg/dL Urine Ketones TRACE (NEGATIVE) mg/dL Urine Occult Blood NEGATIVE (NEGATIVE) Urine Nitrite NEGATIVE (NEGATIVE) Urine Bilirubin NEGATIVE (NEGATIVE) Urine Urobilinogen 1 (NORMAL) (NORMAL) E.U./dL Ur Leukocyte Esterase NEGATIVE (NEGATIVE) Urine RBC None Seen (0-5) /HPF Urine WBC 0-3 (0-5) /HPF Ur Squamous Epith Cells RARE Squamous (<= Few) Urine Crystals 0-2 Calcium Oxalate /LPF Amorphous Sediment Few /LPF Urine Bacteria None Seen (None Seen) /HPF Urine Mucus Few Strands Urine Culture Comments NOT INDICATED Exam Exam Vital Signs: Vital Signs x48h Temp Pulse Resp BP Pulse Ox 02/28/25 08:14 37.3 C 77 16 114/65 94 Exam directed towards the right lower extremity reveals the leg to be shortened and externally rotated she has tenderness to the greater trochanteric and groin region she is unable to do a straight leg raise and she has tenderness with logroll. Impression/Plan Problem List (1) Femoral neck fracture: Plan: The patient does have a displaced femoral neck fracture and I described the treatment option to her and we have elected to proceed with right hip hemiarthroplasty. She understands all the risks and benefits she did sign a consent and wishes to proceed. Qualifiers: Encounter type: initial encounter Fracture type: closed Laterality: r ight Qualified Code(s): S72.001A - Fracture of unspecified part of neck of right femur, initial encounter for closed fracture (2) GERD (gastroesophageal reflux disease): Qualifiers: Esophagitis presence: esophagitis presence not specified Qualified Code(s): K21.9 - Gastro-esophageal reflux disease without esophagitis (3) Insomnia: Qualifiers: Insomnia type: unspecified Qualified Code(s): G47.00 - Insomnia, unspecified
[2025-02-28] MEDS ORDERED: PROPOFOL 500 MG/50 ML 500 MG/50 ML VIAL ONE (11:44)
--- NOTE | 2025-02-28 12:28 | PHARMACY PROGRESS NOTE ---
Best Possible Medication History Admit Date and Time: 02/27/25 1658 Home Medications Medication Instructions Recorded Confirmed Type tolterodine 4 mg capsule,extended 4 mg PO DAILY 02/28/25 History release 24 hr ascorbic acid (vitamin C) 500 mg 500 mg PO DAILY 02/2802/28/25 History tablet cholecalciferol (vitamin D3) 25 25 mcg PO DAILY 02/28/25 History mcg (1,000 unit) tablet multivitamin (Daily Multi-Vitamin 1 tab PO DAILY 02/2802/28/25 History tablet) omeprazole 20 mg capsule,delayed 20 mg PO DAILY 02/28/25 History release polyethylene glycol 3350 17 17 g PO DAILY PRN congesti on 02/28/25 02/28/25 History gram/dose oral powder (LaxaClear) terbinafine HCl 250 mg tablet 250 mg PO DAILY 02/28/25 02/28/25 History trazodone 50 mg tablet 200 mg PO HS 02/28/25 History triamcinolone acetonide 0.1 % 1 applic topical BID PRN itching 02/28/25 02/28/25 History topical ointment Processed by: Pharmacy (Medication reconciliation completed by Machinist MateOsbaldo) Medications reviewed in ED?: No Medication History completed: Yes Patient Interview: Completed Secondary Source(s): Insurance records [facility] Statement: As the person ultimately responsible for medication therapy, providers are able to order a medication from an existing home medication list in [facility] via the "Reconcile Routine" prior to Confirmation of that medication by geophysical support specialist. Such practice is discouraged except when the physician, in their clinical judgment, deems that a medical need exists for a medication without regard to previous use.
[2025-02-28] MEDS ORDERED: ceFAZolin 1 GM VIAL ONE (12:42)
[2025-02-28] MEDS ORDERED: LACTATED RINGERS 1,000 ML IV PRN (12:55)
[2025-02-28] MEDS ORDERED: TRANEXAMIC ACID IN NACL 1,000 MG/100 ML BAG IV PRN ×2 (12:55→13:05)
[2025-02-28] MEDS ORDERED: PHENYLEPHRINE HCL 0.5 MG/5 ML AMPULE ONE (13:07)
[2025-02-28] MEDS ORDERED: [UNRECOGNIZED DRUG - OTHER] IV ONE (13:08)
[2025-02-28] MEDS ORDERED: ePHEDrine 50 MG/ML VIAL IVP ONE (13:28)
[2025-02-28] MEDS ORDERED: ROPIVACAINE 0.5% PF 20 ML VIAL ONE (13:58)
[2025-02-28] MEDS ORDERED: SODIUM CHLORIDE 0.9% 10 ML VIAL ONE (13:58)
--- NOTE | 2025-02-28 14:21 | OPERATIVE REPORT ---
Operative Report General Admit Date: 02/27/25 Procedure Data: Operation Date: 02/28/25 12:00 Proposed Procedures p Hip Hemiprosthesis(Right) - Rmei Hebert DO Actual Procedures p Hip Hemiprosthesis(Right) - Remi Hebert, Anesthesia Type General Case Staff Anesthesia Provider: Beto Wilson Assisting Provider: Jackie Gonzalez Rep: justyna Mckeon. Case Times Procedure Start: 02/28/25 12:55 Time out: 02/28/25 12:46 Implants HEAD COCR 28MM -6 [id number] Pre-Op Diagnosis: Right hip displaced femoral neck fracture Post Op Diagnosis: Right hip displaced femoral neck fracture Procedure Note Estimated Blood Loss (ml): 150 Indications: Displaced right femoral neck fracture Complications: None Other Other Information/Narrative: The patient was taken to the operative suite and after undergoing a general anesthetic the right hip was prepped and draped in the usual sterile fashion approximately 15 cm incision was made on the lateral aspect of the hip and dissection was taken down to the tensor fascia nikki this was incised longitudinally we then put the Charnley in place we were able to identify the gluteus medius and minimus we elevated the anterior two thirds off of its insertion site on the greater trochanteric region and then we identified the capsule we did an anterior capsulectomy just enough to access the joint and once we did that we could see the femoral neck fracture quite easily at this point we put the leg in the bag we measured about 7 mm above the lesser troches and then made our femoral neck cut to freshen up our edges and this went without any complication we then put the leg back up on the table did a thorough examination of the acetabulum and there were no loose fracture fragments and she had good cartilage coverage so there was no indication to do a complete hip replacement on this injury. At that time we put the leg back in the black bag and we used the femoral neck elevator and we first used a box osteotome to gain entrance to the canal within the canal finder and then we started concentric broaching we s tarted with a size 4 and we broached up to a size 12 and this was the staple prosthesis we did go ahead and calcar ream and we did take off another couple millimeters and then we took out the trial and placed in the 12 mm stem with standard offset I then trialed the neck length of both -3 and -6 off of this and -6 was the better fit is -3 was just a little bit long so I went with the -6 which might be about a millimeter so short but there was a better option then leaving her couple millimeters long we then assembled the bipolar on the back table with the -6 neck we placed it onto the femur and then reduced the hip and took it through range of motion it was found to be incredibly stable we then did a thorough irrigation and we drilled 3 holes through the greater trochanteric region we sewed the gluteus medius and minimus back down to its insertion site on the greater troches we oversewed this with a #1 Vicryl we used the strata fix and 0 Vicryl to close the tensor fascia nikki 2 oh was used to close the subcutaneous tissue michela for the skin a sterile dressing was applied and the patient was awakened and transferred stable to recovery room
[2025-02-28] MEDS: LACTATED RINGERS 1,000 ML IV SCH (14:28)
[2025-02-28] MEDS ORDERED: METOCLOPRAMIDE 10 MG/2 ML VIAL IVP PRN (14:38)
[2025-02-28] MEDS ORDERED: fentaNYL 100 MCG/2 ML VIAL IVP PRN ×2 (14:38→15:25)
[2025-02-28] MEDS ORDERED: ATROPINE ABBOJECT 1 MG/10 ML SYRINGE IVP PRN (14:38)
[2025-02-28] MEDS ORDERED: HYDROmorphone 0.5 MG/0.5 ML SYRINGE IVP PRN (14:38)
[2025-02-28] MEDS ORDERED: NALOXONE 0.4 MG/ML VIAL IVP PRN (14:38)
[2025-02-28] MEDS ORDERED: MORPHINE 2 MG/ML CARPUJECT IVP PRN (14:38)
[2025-02-28] MEDS ORDERED: ePHEDrine 50 MG/ML VIAL IVP PRN (14:38)
[2025-02-28] MEDS ORDERED: ONDANSETRON 4 MG/2 ML VIAL IVP PRN (14:38)
--- NOTE | 2025-02-28 14:59 | ANESTHESIA POST OP EVALUATION ---
Anesthesia Post Eval Post Anesthesia Eval Vitals: Last Vital Signs Temp 36.6 C 02/28/25 14:41 Pulse 73 02/28/25 14:51 Resp 19 02/28/25 14:51 BP 129/66 02/28/25 14:51 Pulse Ox 96 02/28/25 14:51 CV Function Including HR & BP: Stable Pain Control: Satisfactory Nausea & Vomiting: Negative Mental Status: Baseline Respiratory Status: Airway Patent Hydration Status: Satisfactory Anesthesia Complications: None
[2025-02-28] MEDS: ACETAMINOPHEN 500 MG TABLET PO SCH (15:24)
[2025-02-28] MEDS: ceFAZolin (2G) 2 GM in SODIUM CHLORIDE 0.9% MINIBAG 100 ML IV SCH ×2 (15:25→19:38)
[2025-02-28] MEDS: SODIUM CHLORIDE 0.9% 1,000 ML IV SCH (18:39)
[2025-02-28] MEDS ORDERED: traZODone 50 MG TABLET PO SCH (21:00)
[2025-02-28] MEDS: DOCUSATE SODIUM 100 MG CAPSULE PO SCH (22:25)
--- NOTE | 2025-03-01 04:14 | XRAY Report ---
PROCEDURE: XR Pelvis 1-2V INDICATIONS: post operative imaging TECHNIQUE: Single AP view of the pelvis acquired. COMPARISON: None. FINDINGS: Bones: No fractures or dislocations. Hardware within the right hip status post arthroplasty without evidence of complication. Moderate left hip osteoarthritic degenerative change. No suspicious bony lesions. Soft tissues: Visualized bowel gas pattern is normal. No suspicious soft tissue calcifications. IMPRESSION: No acute bony abnormality or hardware complication status post right hip arthroplasty. Degenerative change of the left hip noted. Reviewed by: Stevenson Larsen MD on 03/01/2025 4:13 AM PDT Approved by: Stevenson Larsen MD on 03/01/2025 4:13 AM PDT Station ID: [id number]
[2025-03-01] MEDS: PANTOPRAZOLE 40 MG TABLET PO SCH (06:40)
[2025-03-01] MEDS ORDERED: ENOXAPARIN 40 MG/0.4 ML SYRINGE SUBQ SCH (09:00)
[2025-03-01 09:09] LABS: HCT - HEMATOCRIT 34.9 % (37.0-47.0); HGB - HEMOGLOBIN 11.7 g/dL (12.0-16.0); MEAN CORPUSCULAR HGB CONC 33.5 g/dL (32.0-36.0); MEAN CORPUSCULAR VOLUME 95.4 fL (81.0-99.0); MEAN PLATELET VOLUME 11.8 fL (7.9-10.8); RED BLOOD COUNT 3.66 10^6/uL (4.20-5.40); RED CELL DISTRIBUTION WIDTH 13.7 % (12.0-15.0); WHITE BLOOD COUNT 23.3 x10^3/uL (4.8-10.8)
[2025-03-01 09:21] LABS: CALCIUM 9.4 mg/dL (8.5-10.3); CREATININE 0.6 mg/dL (0.6-1.3)
[2025-03-01] MEDS: SOLIFENACIN SUCCINATE 5 MG TABLET PO SCH (09:47)
[2025-03-01] MEDS: MULTIVITAMIN W/MINERALS TABLET PO SCH (09:47)
[2025-03-01] MEDS: ASCORBIC ACID 500 MG TABLET PO SCH (09:48)
[2025-03-01] MEDS: CHOLECALCIFEROL 25 MCG TABLET PO SCH (09:48)
[2025-03-01] MEDS: ONDANSETRON 4 MG/2 ML VIAL IVP PRN (09:59)
--- NOTE | 2025-03-01 12:48 | XRAY Report ---
PROCEDURE: XR Chest 1V INDICATIONS: MOON TECHNIQUE: One view of the chest was acquired. COMPARISON: 02/27/2025. FINDINGS: Surgical changes and devices: None. Lungs and pleura: Trace left pleural effusion is seen with blunting of left costophrenic angle. Mild left basilar atelectasis. No consolidation. No pneumothorax. Mediastinum: Mediastinal contours appear normal. Heart size is normal. Bones and chest wall: No suspicious bony lesions. Overlying soft tissues appear unremarkable. IMPRESSION: Left basilar atelectasis. Trace left pleural effusion. No focal infiltrate or pneumothorax. Reviewed by: Vincent Barreto MD on 03/01/2025 12:47 PM PDT Approved by: Vincent Barreto MD on 03/01/2025 12:47 PM PDT Station ID: [id number]
--- NOTE | 2025-03-01 13:08 | PT Plan of Care ---
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 Cleared for PT eval by orthopedics. WBAT, no hip precautions. Please see medical record for PMH. Per pt report and chart review pt is indep at baseline and lives with in [facility] with 4STE and 2 steps down to living room (both with railing), walk in shower and does not require AD. Upon PT eval, pt is A&Ox3-4 but somnolent and unable to maintain eyes open during evaluation. Reports pain 1/10, had pain meds approx. 1hr prior to PT eval. Despite somnolence, pt is agreeable to work with PT. Hypotensive at rest and with activity, and states she feels tired and fuzzy headed. Requires mod to maxAx2 for supine to sit transfer, attempted standing transfer but pt unable to follow cueing for safe walker use. Requires handheld assist and maxAx2, unable to maintain standing d/t fatigue and elevated pain. Requires dependent transfer back to supine, remains hypotensive at end of session. Pt presenting far below indep baseline, unable to amb household distances and unable to perform ADLs indep. Pt will benefit from skilled PT in acute setting to improve functional mobility and reduce fall risk. When medically clear, PT rec dc to SNF for continued rehab. Goals Improve bed mobility to: Contact Guard Improve supine to sit to: Minimal Assist Improve sit to stand to: Minimal Assist Improve pivot transfer ability Minimal Assist to: Improve sit to supine to: Minimal Assist Improve gait ability to: Min A Assistive Device Used: Front Wheeled Walker Improve Sitting Balance to: Good Improve Standing Balance to: Fair PT Plan of Care Frequency 1-2x/day Duration Until goals are met Discharge Recommendations Discharge Location [facility] Facility Support/Services Needed With assist DC Equipment Recommended Front wheeled walker Transport Needs at Discharge [facility] Other BLS d/t recent fx, unable to sit/stand unsupported
--- NOTE | 2025-03-01 13:20 | OT Plan of Care ---
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 To OR on 02/28 for hemiarthroplasty, POD1 WBAT. Met supine in bed, lethargic but able to participate. Trialed session on RA 91%, placed back on 2L 2/2 lethargy at end of session. Hypotensive but stable (see vitals above). Performed supine to sit MAX Ax2 EOB sitting ~ 10 mins MIN A to CGA during simple grooming. 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 Rec KENY OOB to chair with nursing as appropriate. Bed schaefer at this time. Overall presents with decreased endurance, activity tolerance and ADL status. Will benefit from cont OT services during acute stay. Rec d/c to SNF at this time. Plan Treatment Frequency 1x/day Duration Until discharge -Discharge Recommendations Discharge Location [facility] Facility Transport Needs at Discharge [email or web address]
--- NOTE | 2025-03-01 14:46 | PROVIDER PROGRESS NOTE ---
Subjective Prog Note Date Prog Note Date: 03/01/25 Subjective Pt reports feeling: No change Current Medications Current Medications Current Medications: Current Medications Generic Name Dose Route Start Last Admin Trade Name Rich PRN Reason Stop Dose Admin Acetaminophen 1,000 mg 02/28/25 14:00 03/01/25 13:58 Acetaminophen 500 Mg Tablet PO 03/03/25 13:59 1,000 mg TID MIQUEL Administration Ascorbic Acid 500 mg 03/01/25 09:00 03/01/25 09:48 Ascorbic Acid 500 Mg Tablet PO 500 mg DAILY MIQUEL Administration Cholecalciferol 25 mcg 03/01/25 09:00 03/01/25 09:48 Cholecalciferol 25 Mcg Tablet PO 25 mcg DAILY MIQUEL Administration Docusate Sodium 100 mg 02/28/25 21:00 03/01/25 09:47 Docusate Sodium 100 Mg Capsule PO 100 mg BID MIQUEL Administration Fentanyl 25 mcg 02/28/25 15:25 Fentanyl 100 Mcg/2 Ml Vial IVP Q2HR PRN Severe Breakthrough pain(8-10) Hydromorphone HCl 0.5 mg 02/27/25 18:52 03/01/25 06:51 Hydromorphone 0.5 Mg/0.5 Ml Syringe IVP 0.5 mg Q4HR PRN Administration Severe Pain (Level 7-10) Lactated Ringer's 1,000 mls @ 0 mls/hr 02/28/25 12:55 Lr IV .Q0M PRN preop TKO Sodium Chloride 1,000 mls @ 83 mls/hr 02/28/25 15:16 03/01/25 06:44 Normal Saline 0.9% IV 83 mls/hr .Q12H3M MIQUEL Administration Lorazepam 0.5 mg 02/27/25 19:20 03/01/25 10:10 Lorazepam 2 Mg/Ml Vial IVP 0.5 mg Q4H PRN Administration tremors Multivitamins/Minerals 1 tab 03/01/25 08:00 03/01/25 09:48 Multivitamin W/Minerals Tablet PO 1 tab DAILYWM MIQUEL Administration Ondansetron HCl 4 mg 03/01/25 02:16 03/01/25 09:59 Ondansetron 4 Mg/2 Ml Vial IVP 4 mg Q4HR PRN Administration Nausea / Vomiting Oxycodone HCl 5 mg 03/01/25 11:44 Oxycodone 5 Mg Tablet PO Q4HR PRN Moderate Pain (Level 4-6) Pantoprazole Sodium 40 mg 03/01/25 07:00 03/01/25 06:40 Pantoprazole 40 Mg Tablet PO 40 mg QDAC MIQUEL Administration Polyethylene Glycol 17 gm 02/28/25 09:00 03/01/25 09:48 Polyethylene Glycol 3350 17 Gm Packet PO 17 gm DAILY MIQUEL Administration Sodium Chloride 10 ml 02/27/25 17:39 02/27/25 19:39 Sodium Chloride Flush 0.9% 10 Ml Syringe IVP 10 ml PRN PRN Administration NEEDED PER PROVIDER ORDERS Sodium Chloride 10 ml 02/27/25 17:39 03/01/25 09:49 Sodium Chloride Flush 0.9% 10 Ml Syringe IVP Not Given 0100,0900,1700 MIQUEL Solifenacin 10 mg 03/01/25 09:00 03/01/25 09:47 Solifenacin Succinate 5 Mg Tablet PO 10 mg DAILY MIQUEL Administration Trazodone HCl 200 mg 02/27/25 21:00 02/28/25 22:37 Trazodone 50 Mg Tablet PO Not Given QPM MIQUEL Objective Vital Signs/Intake & Output Reviewed Vital Signs: Yes Vital Signs: Vital Signs x48h Temp Pulse Pulse Pulse Pulse Resp BP 03/01/25 13:08 81 82 77 112/52 L 03/01/25 13:00 36.5 C 75 16 03/01/25 11:00 81 82 77 112/52 L 03/01/25 07:55 36.9 C 78 18 03/01/25 07:09 BP BP BP Pulse Ox O2 Flow Rate 03/01/25 13:08 98/60 87/80 L 03/01/25 13:00 102/52 L 98 03/01/25 11:00 98/60 87/80 L 03/01/25 07:55 97/60 93 2 03/01/25 07:09 92 2 Intake & Output: Intake & Output 02/26/25 02/27/25 02/28/25 03/01/25 23:59 23:59 23:59 23:59 Intake Total 440 / 440 2115 / 2115 1340 / 1340 Output Total 375 / 375 1315 / 1315 525 / 525 Balance 65 / 65 800 / 800 815 / 815 Weight (kg) 81.5 kg Objective General Appearance: positive No acute distress and Alert Eyes Bilateral: positive Normal inspection ENT: positive ENT inspection nml Neck: positive Nml inspection Respiratory: positive Chest non-tender and No respiratory distress Cardiovascular: positive Regular rate & rhythm Abdomen: positive Non-tender Skin: positive Color nml Extremities: positive No pedal edema and Other (Right leg with surgical dressing) Neurologic/Psychiatric: positive Oriented x3 Lab Results 03/01/25 09:01 03/01/25 09:01 Other Labs: Lab Results x24hrs 03/01/25 Range/Units 09:01 WBC 23.3 H (4.8-10.8) x10^3/uL RBC 3.66 L (4.20-5.40) 10^6/uL Hgb 11.7 L (12.0-16.0) g/dL Hct 34.9 L (37.0-47.0) % MCV 95.4 (81.0-99.0) fL MCH 32.0 H (27.0-31.0) pg MCHC 33.5 (32.0-36.0) g/dL RDW 13.7 (12.0-15.0) % Plt Count 79 L (130-450) 10^3/uL MPV 11.8 H (7.9-10.8) fL Sodium 134 L (135-145) mmol/L Potassium 4.0 (3.5-4.5) mmol/L Chloride 103 (101-111) mmol/L Carbon Dioxide 26 (21-32) mmol/L Anion Gap 5.0 L (6-13) BUN 14 (6-20) mg/dL Creatinine 0.6 (0.6-1.3) mg/dL Estimated GFR (MDRD) 96 (>89) Glucose 163 H (74-104) mg/dL Calcium 9.4 (8.5-10.3) mg/dL Assessment/Plan Problem List (1) Femoral neck fracture: Impression: Midcervical right femoral neck fracture confirmed on x-ray from mechanical ground-level fall Orthopedics following 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 Also with as needed Dilaudid and oxycodone Qualifiers: Encounter type: initial encounter Fracture type: closed Laterality: r ight Qualified Code(s): S72.001A - Fracture of unspecified part of neck of right femur, initial encounter for closed fracture (2) GERD (gastroesophageal reflux disease): Impression: I have restarted her home dose of omeprazole Qualifiers: Esophagitis presence: esophagitis presence not specified Qualified Code(s): K21.9 - Gastro-esophageal reflux disease without esophagitis (3) Insomnia: Impression: Continue trazodone Qualifiers: Insomnia type: unspecified Qualified Code(s): G47.00 - Insomnia, unspecified
[2025-03-01] MEDS: ceFAZolin (2G) 2 GM in SODIUM CHLORIDE 0.9% MINIBAG 100 ML IV ONE (15:31)
[2025-03-01] MEDS: oxyCODONE 5 MG TABLET PO PRN (15:52)
--- NOTE | 2025-03-01 20:24 | PROVIDER PROGRESS NOTE ---
Subjective General Admit Date: 02/27/25 Procedure Date: 02/28/25 Post Op Days: 1 Procedure Performed: Right hip hemiarthroplasty Other Other Information/Narrative: Patient lying in bed accompanied by Piter She denies chest pain, dyspnea, nausea, emesis and difficulty urinating. Nuñez catheter remains in place She has no pain while sitting at rest however with movement pain about the right hip significantly increases. She was up with physical therapy today ambulating with a walker. She states her white blood cell count normally runs high per her primary care provider Dr. Wylie at [facility] in [place]. No records available to verify at this time. She does not know an etiology for this leukocytosis. No history of thrombocytopenia Review of Systems Status of ROS: See HPI Exam Exam Vital Signs: Vital Signs x48h Temp Pulse Pulse Pulse Pulse Resp BP 03/01/25 17:00 36.8 C 77 16 03/01/25 13:08 81 82 77 112/52 L 03/01/25 13:00 36.5 C 75 16 BP BP BP Pulse Ox O2 Flow Rate 03/01/25 17:00 105/56 L 97 1 03/01/25 13:08 98/60 87/80 L 03/01/25 13:00 102/52 L 98 2 Well-developed, well-nourished, 79-year-old female, no acute distress Nasal cannula in place, no acute respiratory distress Dressing is dry and intact about the right hip without ecchymosis, drainage or erythema Neurovascular intact to the right lower extremity. Neurovascular intact about the femoral and sciatic nerve distributions. ABX Reporting Has patient been on IV antibiotics over the past 48 hours?: Yes Impression/Plan Problem List (1) Femoral neck fracture: Plan: 79-year-old female past medical history of GERD is postoperative day 1 from right hip hemiarthroplasty by Dr. Hebert at [facility] on 02/28/2025. She is doing well today with appropriate pain control and tolerating oral diet. She is making urine with nuñez catheter in place. Physical therapy evaluation today with current recommendation for discharge to SNF. Leukocytosis noted on labs today white blood cell count 23.3 up from 6.9 yesterday. Urinalysis from admission did not indicate a urinary tract infection. Chest x-ray obtained today by internal medicine team shows left basilar atelectasis without focal pneumonia or consolidation. No drainage on dressing today. No diarrhea or nausea or emesis. She is afebrile with intermittent hypotension. She has been on IV ancef every 8 hours for one day. No known source of infection. Platelets 79 today downtrending from 94 yesterday. DVT prophylaxis initiated post operatively. Daily CBC to monitor leukocytosis. Plan: - DVT prophylaxis with lovenox 40 mg changed to 2.5 mg of eliquis BID, SCDs in hospital - Physical and occupational therapy evaluation recommending discharge to SNF at this time. Social work following for discharge planning if needed. - Pain control per primary medicine team - Weight bearing as tolerated with front wheeled walker at all times. No hip precautions - Follow up with orthopedic clinic in 9-10 days of discharge - Nursing to convert bulky dressing to Mepilex dressing on post operative day 2. Mepilex dressing to remain in place until follow up unless saturated. - Bowel regimen with colace and miralax. No bowel movements since surgery. - Normal diet, IV fluids to be discontinued when tolerating oral diet without nausea and emesis - Appreciate medical expertise of primary medicine team in management of medical comorbidities Qualifiers: Encounter type: initial encounter Fracture type: closed Laterality: right Qualified Code(s): S72.001A - Fracture of unspecified part of neck of right femur, initial encounter for closed fracture (2) GERD (gastroesophageal reflux disease): Qualifiers: Esophagitis presence: esophagitis presence not specified Qualified Code(s): K21.9 - Gastro-esophageal reflux disease without esophagitis (3) Insomnia: Qualifiers: Insomnia type: unspecified Qualified Code(s): G47.00 - Insomnia, unspecified
[2025-03-02 04:23] LABS: BASOPHILS % (AUTO) 0.1 %; EOSINOPHILS % (AUTO) 0.4 %; HCT - HEMATOCRIT 30.3 % (37.0-47.0); HGB - HEMOGLOBIN 10.1 g/dL (12.0-16.0); LYMPHOCYTES % (AUTO) 8.5 %; MEAN CORPUSCULAR HEMOGLOBIN 31.7 pg (27.0-31.0); MEAN CORPUSCULAR HGB CONC 33.3 g/dL (32.0-36.0); MEAN PLATELET VOLUME 12.3 fL (7.9-10.8); MONOCYTES % (AUTO) 22.7 %; NEUTROPHILS % (AUTO) 67.7 %; PLT - PLATELET COUNT 56 10^3/uL (130-450); RED BLOOD COUNT 3.19 10^6/uL (4.20-5.40); RED CELL DISTRIBUTION WIDTH 13.8 % (12.0-15.0)
[2025-03-02 04:35] LABS: ABNORMAL LYMPHS % (MANUAL) 0 %
[2025-03-02 04:39] LABS: CREATININE 0.6 mg/dL (0.6-1.3); POTASSIUM 4.3 mmol/L (3.5-4.5)
[2025-03-02 06:13] LABS: BAND NEUTROPHILS % (MANUAL) 4 %; DIFFERENTIAL COMMENT MANUAL DIFFERENTIAL; LYMPHOCYTES # (MANUAL) 0.4 10^3/uL (1.5-3.5); LYMPHOCYTES % (MANUAL) 3 %; NEUTROPHILS # (MANUAL) 11.6 10^3/uL (1.5-6.6); PLATELET ESTIMATE, MANUAL DECREASED (<130,000) (NORMAL); PLATELET MORPHOLOGY NORMAL APPEARANCE (NORMAL); RBC MORPHOLOGY (MULTIPLE) NORMAL APPEARANCE (NORMAL); WBC MORPHOLOGY (MULTIPLE) NORMAL APPEARANCE (NORMAL)
[2025-03-02] MEDS: APIXABAN 2.5 MG TABLET PO SCH (08:54)
[2025-03-02 11:08] LABS: INR 1.5 (0.8-1.2); PT - PROTHROMBIN TIME 17.2 secs (9.9-12.6)
[2025-03-02 11:14] LABS: FIBRINOGEN 595 mg/dL (220-496)
--- NOTE | 2025-03-02 11:17 | POST OP PROGRESS NOTE ---
Subjective General Admit Date: 02/27/25 Procedure Date: 02/28/25 Post Op Days: 2 Procedure Performed: Right hip hemiarthroplasty Other Other Information/Narrative: Patient was seen and examined today and she is doing okay. She states her pain is controlled if she does not move much and she has not been able to get out of bed on her own just yet. Ortho Surgical Progress Note Problem List Problem List: Status post right hip hemiarthroplasty Discharge Instructions: I think the patient is doing quite well but also moving quite slowly. She does seem quite tired and she does have a low platelet count of about 50,000. Her white count shot up to 23,000 yesterday but it is back down to 14 and I think with a clean urine clean wound and clear lungs I am going to chalked this up to stress right now and we can check it again tomorrow make sure she is trending back to her normal more normal direction.From an orthopedic standpoint she is ready for discharge to a detention facility whenever that is available. Exam Exam Vital Signs: Vital Signs x48h Temp Pulse Resp BP Pulse Ox O2 Flow Rate 03/02/25 08:19 37.4 C 83 16 100/54 L 97 1 03/02/25 03:19 37.1 C 88 16 117/57 L 97 1 Physical exam reveals the wound to be clean dry and intact there is no erythema no drainage and no signs and symptoms of any infection.
[2025-03-02 11:30] LABS: PARTIAL THROMBOPLASTIN TIME 29.2 secs (24.9-33.3)
[2025-03-02 11:37] LABS: D-DIMER > 1050.0 ng/mL (200.0-255.0)
--- NOTE | 2025-03-02 14:15 | PROVIDER PROGRESS NOTE ---
Subjective Prog Note Date Prog Note Date: 03/02/25 Subjective Pt reports feeling: No change Current Medications Current Medications Current Medications: Current Medications Generic Name Dose Route Start Last Admin Trade Name Rich PRN Reason Stop Dose Admin Acetaminophen 1,000 mg 02/28/25 14:00 03/02/25 13:56 Acetaminophen 500 Mg Tablet PO 03/03/25 13:59 1,000 mg TID MIQUEL Administration Apixaban 2.5 mg 03/02/25 09:00 03/02/25 08:54 Apixaban 2.5 Mg Tablet PO 2.5 mg BID MIQUEL Administration Ascorbic Acid 500 mg 03/01/25 09:00 03/02/25 08:53 Ascorbic Acid 500 Mg Tablet PO 500 mg DAILY MIQUEL Administration Cholecalciferol 25 mcg 03/01/25 09:00 03/02/25 08:53 Cholecalciferol 25 Mcg Tablet PO 25 mcg DAILY MIQUEL Administration Docusate Sodium 100 mg 02/28/25 21:00 03/02/25 08:53 Docusate Sodium 100 Mg Capsule PO 100 mg BID MIQUEL Administration Hydromorphone HCl 0.5 mg 02/27/25 18:52 03/02/25 05:52 Hydromorphone 0.5 Mg/0.5 Ml Syringe IVP 0.5 mg Q4HR PRN Administration Severe Pain (Level 7-10) Lorazepam 0.5 mg 02/27/25 19:20 03/01/25 10:10 Lorazepam 2 Mg/Ml Vial IVP 0.5 mg Q4H PRN Administration tremors Multivitamins/Minerals 1 tab 03/01/25 08:00 03/02/25 08:54 Multivitamin W/Minerals Tablet PO 1 tab DAILYWM MIQUEL Administration Ondansetron HCl 4 mg 03/01/25 02:16 03/01/25 09:59 Ondansetron 4 Mg/2 Ml Vial IVP 4 mg Q4HR PRN Administration Nausea / Vomiting Oxycodone HCl 5 mg 03/01/25 11:44 03/02/25 09:04 Oxycodone 5 Mg Tablet PO 5 mg Q4HR PRN Administration Moderate Pain (Level 4-6) Pantoprazole Sodium 40 mg 03/01/25 07:00 03/02/25 06:56 Pantoprazole 40 Mg Tablet PO 40 mg QDAC MIQUEL Administration Polyethylene Glycol 17 gm 02/28/25 09:00 03/02/25 08:53 Polyethylene Glycol 3350 17 Gm Packet PO 17 gm DAILY MIQUEL Administration Sodium Chloride 10 ml 02/27/25 17:39 02/27/25 19:39 Sodium Chloride Flush 0.9% 10 Ml Syringe IVP 10 ml PRN PRN Administration NEEDED PER PROVIDER ORDERS Sodium Chloride 10 ml 02/27/25 17:39 03/02/25 08:53 Sodium Chloride Flush 0.9% 10 Ml Syringe IVP 10 ml 0100,0900,1700 MIQUEL Administration Solifenacin 10 mg 03/01/25 09:00 03/02/25 08:57 Solifenacin Succinate 5 Mg Tablet PO 10 mg DAILY MIQUEL Administration Trazodone HCl 200 mg 02/27/25 21:00 03/01/25 21:17 Trazodone 50 Mg Tablet PO 200 mg QPM MIQUEL Administration Objective Vital Signs/Intake & Output Reviewed Vital Signs: Yes Vital Signs: Vital Signs x48h Temp Pulse Resp BP Pulse Ox O2 Flow Rate 03/02/25 11:48 36.5 C 85 18 117/60 96 03/02/25 08:40 1 03/02/25 08:19 37.4 C 83 16 100/54 L 97 1 Intake & Output: Intake & Output 02/27/25 02/28/25 03/01/25 03/02/25 23:59 23:59 23:59 23:59 Intake Total 440 / 440 2115 / 2115 3045 / 3045 1712 / 1712 Output Total 375 / 375 1315 / 1315 1075 / 1075 350 / 350 Balance 65 / 65 800 / 800 1969 / 1969 1362 / 1362 Weight (kg) 81.5 kg Objective General Appearance: positive No acute distress and Alert Eyes Bilateral: positive Normal inspection ENT: positive ENT inspection nml Neck: positive Nml inspection Respiratory: positive Chest non-tender and No respiratory distress Cardiovascular: positive Regular rate & rhythm Abdomen: positive Non-tender Skin: positive Color nml Extremities: positive No pedal edema and Other (Right leg with surgical dressing) Neurologic/Psychiatric: positive Oriented x3 Lab Results 03/02/25 03:57 03/02/25 03:57 Other Labs: Lab Results x24hrs 03/02/25 03/02/25 Range/Units 10:48 03:57 WBC 14.0 H (4.8-10.8) x10^3/uL RBC 3.19 L (4.20-5.40) 10^6/uL Hgb 10.1 L (12.0-16.0) g/dL Hct 30.3 L (37.0-47.0) % MCV 95.0 (81.0-99.0) fL MCH 31.7 H (27.0-31.0) pg MCHC 33.3 (32.0-36.0) g/dL RDW 13.8 (12.0-15.0) % Plt Count 56 L (130-450) 10^3/uL MPV 12.3 H (7.9-10.8) fL Neut # (Auto) Not Reportable Lymph # (Auto) Not Reportable [place] # (Auto) Not Reportable Eos # (Auto) Not Reportable Baso # (Auto) Not Reportable Absolute Nucleated RBC Not Reportable Total Counted 100 Band Neuts % (Manual) 4 (0 - 10) % Abnorm Lymph % (Manual) 0 % Nucleated RBC % Not Reportable Neutrophils # (Manual) 11.6 H (1.5-6.6) 10^3/uL Lymphocytes # (Manual) 0.4 L (1.5-3.5) 10^3/uL Monocytes # (Manual) 2.0 H (0.0-1.0) 10^3/uL Eosinophils # (Manual) 0.0 (0-0.7) 10^3/uL Basophils # (Manual) 0.0 (0-0.1) 10^3/uL Differential Comment MANUAL DIFFERENTIAL WBC Morphology NORMAL APPEARANCE (NORMAL) Platelet Estimate DECREASED (<130,000) (NORMAL) Platelet Morphology NORMAL APPEARANCE (NORMAL) RBC Morph Micro Appear NORMAL APPEARANCE (NORMAL) PT 17.2 H (9.9-12.6) secs INR 1.5 H (0.8-1.2) APTT 29.2 (24.9-33.3) secs Fibrinogen 595 H (220-496) mg/dL D-Dimer > 1050.0 H (200.0-255.0) ng/mL Sodium 132 L (135-145) mmol/L Potassium 4.3 (3.5-4.5) mmol/L Chloride 103 (101-111) mmol/L Carbon Dioxide 26 (21-32) mmol/L Anion Gap 3.0 L (6-13) BUN 15 (6-20) mg/dL Creatinine 0.6 (0.6-1.3) mg/dL Estimated GFR (MDRD) 96 (>89) Glucose 115 H (74-104) mg/dL Calcium 9.0 (8.5-10.3) mg/dL Assessment/Plan Problem List (1) Femoral neck fracture: Impression: Midcervical right femoral neck fracture confirmed on x-ray from mechanical ground-level fall Orthopedics following 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 Also with as needed Dilaudid and oxycodone 03/02/2025: Ortho reports patient is cleared for discharge. Awaiting SNF placement Qualifiers: Encounter type: initial encounter Fracture type: closed Laterality: r ight Qualified Code(s): S72.001A - Fracture of unspecified part of neck of right femur, initial encounter for closed fracture (2) Thrombocytopenia: Impression: Has chronically low platelets Her platelets have trended down to 56 today It is likely dilutional thrombocytopenia on top of chronic Confirmed with laboratory that this is correct and there is not any platelet clumping CBC in a.m. I have stopped her IV fluids to prevent further dilution (3) GERD (gastroesophageal reflux disease): Impression: I have restarted her home dose of omeprazole Qualifiers: Esophagitis presence: esophagitis presence not specified Qualified Code(s): K21.9 - Gastro-esophageal reflux disease without esophagitis (4) Insomnia: Impression: Continue trazodone Qualifiers: Insomnia type: unspecified Qualified Code(s): G47.00 - Insomnia, unspecified
[2025-03-03 05:44] LABS: BASOPHILS % (AUTO) 0.2 %; EOSINOPHILS # (AUTO) 0.1 10^3/uL (0.0-0.7); EOSINOPHILS % (AUTO) 0.6 %; HCT - HEMATOCRIT 31.1 % (37.0-47.0); HGB - HEMOGLOBIN 10.1 g/dL (12.0-16.0); LYMPHOCYTES # (AUTO) 1.7 10^3/uL (1.5-3.5); LYMPHOCYTES % (AUTO) 15.7 %; MEAN CORPUSCULAR HEMOGLOBIN 31.3 pg (27.0-31.0); MEAN CORPUSCULAR HGB CONC 32.5 g/dL (32.0-36.0); MEAN CORPUSCULAR VOLUME 96.3 fL (81.0-99.0); MEAN PLATELET VOLUME 12.4 fL (7.9-10.8); MONOCYTES # (AUTO) 1.9 10^3/uL (0.0-1.0); MONOCYTES % (AUTO) 17.1 %; NEUTROPHILS # (AUTO) 7.1 10^3/uL (1.5-6.6); NEUTROPHILS % (AUTO) 65.7 %; PLT - PLATELET COUNT 67 10^3/uL (130-450); RED BLOOD COUNT 3.23 10^6/uL (4.20-5.40); RED CELL DISTRIBUTION WIDTH 13.9 % (12.0-15.0); WHITE BLOOD COUNT 10.9 x10^3/uL (4.8-10.8)
[2025-03-03 06:03] LABS: CALCIUM 9.2 mg/dL (8.5-10.3); CREATININE 0.6 mg/dL (0.6-1.3); POTASSIUM 4.3 mmol/L (3.5-4.5)
[2025-03-03 06:44] LABS: DIFFERENTIAL COMMENT MANUAL=AUTO DIFF; PLATELET ESTIMATE, MANUAL NORMAL (130-450,000) (NORMAL); PLATELET MORPHOLOGY NORMAL APPEARANCE (NORMAL); RBC MORPHOLOGY (MULTIPLE) NORMAL APPEARANCE (NORMAL); WBC MORPHOLOGY (MULTIPLE) NORMAL APPEARANCE (NORMAL)
[2025-03-03 07:49] VITALS: BP 114/59; TEMP 99; O2SAT 94
[2025-03-03] MEDS: MULTIVITAMIN W/MINERALS TABLET PO ONE (08:56)
--- NOTE | 2025-03-03 09:18 | Discharge Summary ---
Discharge Summary Admit Date: 02/27/25 Discharge Date: 03/03/25 Discharging Provider: Jeff Logan Primary Care Provider: Niels Wylie Code Status: Do Not Attempt Resuscitation DIAGNOSES Admission Diagnoses: Fracture of femoral neck, right GERD Insomnia Discharge Diagnoses with Status of Each Condition: Fracture of femoral neck, rightpostop repair Thrombocytopeniachronic, improving GERDchronic Insomniachronic HPI History of Present Illness: Patient is a 79 year old female with a history of GERD who presented after a ground level mechanical fall. Patient was making iced-coffee this morning in her flip-flops. She turned, and then fell. She had no lightheadedness, no dizziness, no prodrome prior to the fall. She does not have a history of falls. She usually ambulates without any assistive devices. She had no lightheadedness after. She fell squarely on her right hip, and had resultant pain afterwards. She has has had bone scans in the past, and has never been told she has osteoporosis or osteopenia. She does not take any calcium or vitamin D supplements. In the ED, she was vitally stable, blood pressure was 150/82, heart rate was 71, she was saturating 95% on room air. She was also afebrile. Lab work was largely unremarkable, except for a slightly elevated AST and ALT, as well as an elevated ALP. This is known from before, as she is on terbinafine for toe onychomycosis. Imaging was done, and a hip/pelvis x-ray showed a midcervical right femoral neck fracture. Chest x-ray showed no acute cardiopulmonary process. Orthopedic surgery was spoken with, and they plan on operating tomorrow. Of note, she has had a few surgeries before including the best reduction and a hysterectomy. She after anesthesia, she always has episodes of upset stomach, nausea, vomiting. HOSPITAL COURSE Hospital Course: Patient was admitted in the hospital and underwent right hip hemiarthroplasty prosthesis. She began to experience low platelet levels, which self corrected. She has a history of thrombocytopenia, likely worsened by dilution with IV fluids. She was evaluated by PT/OT, who recommended SNF placement. She is discharging to SNF today ALLERGIES Allergies Allergy/AdvReac Type Severity Reaction Status Date / Time codeine AdvReac Mild Nausea Verified 02/27/25 15:21 morphine AdvReac Mild Nausea Verified 02/27/25 15:21 MEDICATIONS Ambulatory Orders Medication Instructions Recorded Confirmed tolterodine 4 mg capsule,extended 4 mg PO DAILY 02/28/25 release 24 hr ascorbic acid (vitamin C) 500 mg 500 mg PO DAILY 02/2802/28/25 tablet cholecalciferol (vitamin D3) 25 25 mcg PO DAILY 02/28/25 mcg (1,000 unit) tablet multivitamin (Daily Multi-Vitamin 1 tab PO DAILY 02/2802/28/25 tablet) omeprazole 20 mg capsule,delayed 20 mg PO DAILY 02/28/25 release polyethylene glycol 3350 17 17 g PO DAILY PRN congesti on 02/28/25 02/28/25 gram/dose oral powder (LaxaClear) terbinafine HCl 250 mg tablet 250 mg PO DAILY 02/28/25 02/28/25 trazodone 50 mg tablet 200 mg PO HS 02/28/25 triamcinolone acetonide 0.1 % 1 applic topical BID PRN itching 02/28/25 02/28/25 topical ointment acetaminophen 500 mg tablet 1,000 mg (2 x 500 mg) PO T ID 5 03/03/25 (Tylenol Extra Strength) days #30 tabs apixaban 2.5 mg tablet (Eliquis) 2.5 mg PO BID 30 days #60 tabs 03/03/25 oxycodone 5 mg tablet 5 mg PO QID PRN pain #20 tab s 03/03/25 PHYSICAL EXAM AT DISCHARGE Vital Signs: Vital Signs x48h Temp Pulse Resp BP Pulse Ox O2 Flow Rate 03/03/25 07:50 1 03/03/25 07:48 37.2 C 78 16 114/59 L 94 1 General Appearance: positive No acute distress and Alert Eyes Bilateral: positive Normal inspection and PERRL ENT: positive ENT inspection nml Neck: positive Nml inspection Respiratory: positive Chest non-tender and No respiratory distress Cardiovascular: positive Regular rate & rhythm and No murmur Peripheral Pulses: positive 2+ Abdomen: positive Non-tender Skin: positive Color nml Extremities: positive Full ROM; negative Non-tender (Surgical site tenderness) Neurologic/Psychiatric: positive Oriented x3 LABS 03/03/25 04:55 03/03/25 04:55 FOLLOW UP Follow Up: with PCP, orthopedics TIME SPENT Time Spent in Discharge (Minutes): 35 Discharge Plan Discharge Patient Disposition: 03 [facility] DC/Xfer Condition: Stable Prescriptions: New acetaminophen [Tylenol Extra Strength] 500 mg Tablet 1,000 mg PO TID 5 Days Qty: 30 0RF Eliquis 2.5 mg Tablet 2.5 mg PO BID 30 Days Qty: 60 0RF oxycodone 5 mg tablet 5 mg PO QID PRN (Reason: pain) Qty: 20 0RF Continued trazodone 50 mg tablet 200 mg PO HS terbinafine HCl 250 mg tablet 250 mg PO DAILY Patient Comments: take 1 tablet by mouth once daily DRINK PLENTY OF WATER THROUGHO... (REFER TO PRESCRIPTION NOTES). triamcinolone acetonide 0.1 % ointment 1 applic TOPICAL BID PRN (Reason: itching) Patient Comments: apply to affected area OF itching ON STERNUM twice a day for 2 we... (REFER TO PRESCRIPTION NOTES). omeprazole 20 mg capsule,delayed release(DR/EC) 20 mg PO DAILY multivitamin [Daily Multi-Vitamin] Tablet 1 tab PO DAILY polyethylene glycol 3350 [LaxaClear] 17 gram/dose powder 17 g PO DAILY PRN (Reason: congestion) ascorbic acid (vitamin C) 500 mg tablet 500 mg PO DAILY cholecalciferol (vitamin D3) 25 mcg (1,000 unit) tablet 25 mcg PO DAILY tolterodine 4 mg capsule,extended release 24hr 4 mg PO DAILY Patient Comments: take 1 capsule by mouth once daily Activity Restrictions/Additional Instructions: SURGICAL PROCEDURE: Right Hip Hemiarthroplasty [facility] DATE: 02/28/25 ACTIVITY INSTRUCTIONS - You are weight bearing as tolerated to the right lower extremity with a front wheeled walker at all times. We encourage active movement of the toes every hour while awake to prevent stiffness. You have no hip precautions. - Do not drive a vehicle at this time. DRESSING CARE - You have a waterproof mepilex dressing in place. Leave the dressing in place until your follow up in the orthopedic clinic. You have skin michela underneath the dressing. If the dressing becomes wet or saturated please call [facility] for further instructions. -You can use ice on top of the hip to reduce pain and swelling of the extremity. - If you notice fever, chills, redness, excessive drainage or bleeding, a sharp increase in pain that persists after taking pain medication, pain in your calf muscles, chest pain or trouble breathing please unwrap the dressing and investigate. Then call the office with findings for further guidance. If it is after regular clinic hours, please seek care in the emergency department. - In the rare case of any severe chest pain and trouble breathing, seek immediate care, do not delay for a call to the clinic. - You may shower with the dressing in place. If the dressing becomes saturated please call our office for further guidance. POST-OPERATIVE INSTRUCTIONS - Use ice to the affected extremity for 15 minutes increments as needed - Follow up with the orthopedic clinic in 9-10 days from surgery. Call our office at [phone] with any concerns - Take 2.5 mg of eliquis twice daily to prevent blood clots - Take pain medications as prescribed to manage your post operative hip pain. Health Concerns: You came into the hospital because you fell and broke the neck of your femur. You went to the OR to fix this, and were evaluated by physical therapy, who recommends SNF. I am ordering some medication to help with pain for the next few days. Please follow up with PCP and with orthopedics Print Language: Telugu Patient Instructions: Surg Dc Stand Alone Forms: SNF Discharge, PCP List Follow-up Care: KIERA WYLIE MD [Primary Care Provider] -
== END 2025-03-03 12:25 | DRG 522 ==
LOC: ED 15:16 → MS3 16:58
PROVIDERS: ADMIT Internal Medicine; ATTEND Internal Medicine
PROC: HEMIHIP (2025-02-28 12:00)
DX: D69.6 Thrombocytopenia, unspecified; I95.9 Hypotension, unspecified; Z90.710 Acquired absence of both cervix and uterus; W01.0XXA Fall on same level from slipping, tripping and stumbling without subsequent striking against object, initial encounter; K21.9 Gastro-esophageal reflux disease without esophagitis; Z88.5 Allergy status to narcotic agent; J98.11 Atelectasis; D72.829 Elevated white blood cell count, unspecified; R74.01 Elevation of levels of liver transaminase levels; Y92.000 Kitchen of unspecified non-institutional (private) residence as the place of occurrence of the external cause; G47.00 Insomnia, unspecified; Z66 Do not resuscitate; S72.001A Fracture of unspecified part of neck of right femur, initial encounter for closed fracture; B35.1 Tinea unguium; Z79.899 Other long term (current) drug therapy